=== PATIENT | male | born 1970 | race Two or more races ===

== ENCOUNTER 2022-06-29 08:08 | Outpatient (CLI) | payer BC, SELFPAY ==
[2022-06-29 11:04] LABS: Albumin* 4.1 g/dL (3.3-5.0); Chloride* 108 mmol/L (96-114); Sodium* 140 mmol/L (135-149)
[2022-06-29 11:05] LABS: Potassium* 4.2 mmol/L (3.6-5.1)
[2022-06-29 11:06] LABS: Cholesterol* 147 mg/dL (90-199)
[2022-06-29 11:07] LABS: Alanine Aminotransferase* 24 U/L (4-50); Alkaline Phosphatase* 224 U/L (40-150); Aspartate Amino Transferase* 27 U/L (12-35); Bilirubin Total* 0.8 mg/dL (0.1-1.5); Blood Urea Nitrogen* 14 mg/dL (7-30); Carbon Dioxide* 29 mmol/L (20-32); Creatinine* 0.8 mg/dL (0.5-1.5); Estimated Glomerular Filt Rate 105 ml/min; Glucose* 91 mg/dL (60-115); Total Protein* 6.9 g/dL (6.0-8.3); Triglycerides* 50 mg/dL (40-149); Uric Acid* 5.5 mg/dL (2.2-8.4)
[2022-06-29 11:08] LABS: HDL Cholesterol* 56 mg/dL (>=40); LDL Cholesterol Calculated 81 mg/dL (<100)
[2022-06-29 11:33] LABS: PSA Screen* 1.47 ng/mL (0.10-4.00)
[2022-07-05 13:04] LABS: Lab Miscellaneous Test SC
== END 2022-06-29 08:09 | disposition home or self-care (01) ==
PROVIDERS: PCP Internal Medicine; Visit Provider Internal Medicine
DX: M10.9 Gout, unspecified (principal); Z13.6 Encounter for screening for cardiovascular disorders; Z12.5 Encounter for screening for malignant neoplasm of prostate
CPT/HCPCS: 80053; 80061; 84080; 84153; 84550

== ENCOUNTER 2022-07-01 14:41 | Outpatient (CLI) | payer BC, SELFPAY ==
--- NOTE | 2022-07-01 15:00 | CRLHL7_ITS ---
For Patients: As a result of the Century Cures Act, medical imaging exams and procedure reports are released immediately into your electronic medical record. You may view this report before your referring provider. If you have questions, please contact your health care provider. INDICATION: Abdomen pain. Elevated alkaline phosphatase. COMPARISON: None. TECHNIQUE: Real time gomez scale imaging and color Doppler analysis was performed of the right upper quadrant. FINDINGS: Liver: The liver is normal in size measuring 14.4 cm in length. Normal echogenicity. No focal liver lesions identified. Gallbladder: No stones or sludge. No wall thickening or pericholecystic fluid. Negative sonographic Ruelas sign. Bile ducts: No biliary dilation. The common bile duct measures 4 mm in diameter. Pancreas: Normal where seen. Right kidney: The right kidney measures 11.5 cm in length. No hydronephrosis, calculus, or mass. Vascular: Normal caliber proximal abdominal aorta. The main portal vein appears patent. IMPRESSION: Unremarkable exam. Dictated by Melinda Wolf MD @ 07/02/2022 12:58:52 PM (Electronically Signed)
== END 2022-07-01 14:42 | disposition home or self-care (01) ==
PROVIDERS: PCP Internal Medicine; Visit Provider Internal Medicine
DX: R10.9 Unspecified abdominal pain (principal)
CPT/HCPCS: 76705

== ENCOUNTER 2022-07-02 21:43 | Emergency (ER) | payer BC, SELFPAY ==
[2022-07-02 21:47] VITALS: BP 149/88; PULSE 72; RESP 18; TEMP 36.4; O2SAT 97
--- NOTE | 2022-07-02 21:56 | CRLHL7_ITS ---
For Patients: As a result of the Century Cures Act, medical imaging exams and procedure reports are released immediately into your electronic medical record. You may view this report before your referring provider. If you have questions, please contact your health care provider. INDICATION: Upper abdominal pain. TECHNIQUE: CT abdomen and pelvis acquired with 89 cc Isovue 370 IV contrast. COMPARISON: None. FINDINGS: Lower chest: Scattered dependent atelectasis. Liver: Unremarkable. Normal in size and attenuation. No suspicious masses. Gallbladder and bile ducts: Unremarkable. No stones or inflammation. No biliary dilatation. Pancreas: Unremarkable. No mass or inflammation. Spleen: Unremarkable. Normal in size. No masses. Adrenal glands: Unremarkable. No nodules. Kidneys: Unremarkable. No suspicious masses, stones, or hydronephrosis. GI tract: Mild gastric antral/proximal duodenal thickening accentuated by nondistention. Normal in caliber. No sign of mass or inflammation. Normal appendix. Vasculature: Abdominal aorta is normal in caliber. Mesenteric arteries are patent. Lymph nodes: No lymphadenopathy. Peritoneum/Abdominal Wall: Unremarkable. No sign of mass or infiltration. No free air or significant free fluid. Pelvis: Mildly distended bladder. Bones: Unremarkable for age. IMPRESSION: No acute intra-abdominal/pelvic abnormality. Please note that all CT scans at this facility use dose modulation, iterative reconstruction, and/or weight-based dosing when appropriate to reduce radiation dose to as low as reasonably achievable. Dictated by Alejandro Bejarano MD @ 07/02/2022 10:29:01 PM (Electronically Signed)
--- NOTE | 2022-07-02 21:56 | ED_ITS ---
HPI - Abdominal Pain General Chief Complaint: Abdominal Pain Stated Complaint: Stomach Pain Time Seen by Provider: 07/02/22 22:04 History of Present Illness HPI narrative: Pt is a 52 year old gentleman who I have seen twice in the clinic this week for abd pain. Pt's pt initially was lower abd. Lab work including CBC and CMP was normal with the exception of an alk phos elevation. I did send of bone specific alk phos which is pending. I also did a ultrasound of the abd which was normal. Pt has called the clinic numerous times and has been in contact multiple times over the last 2 days with the Sustainability Officer as well. Pt now has epigastric pain with mild reflux. No dysphagia noted. No chronic gerd. The lower abd pain that initially led to his office visits this week has now resolved. Pt has had no weight loss. No fevers No chills. Pt has no overt chest pain, No ortopnea or PND. Work up begun in the clinic again is negative with the exception of the mild elevation of Alk Phos. Pt is concerned that he is having a stroke leading to his epigastric pain. Today's symptoms have been going on all day and have been constant. Related Data Previous Rx's Medication Instructions Recorded peg 3350-electrolytes 236 4,000 ml PO DIRECTED PRN 06/29/22 gram-22.74 gram-6.74 gram-5.86 Screening due #1 mL gram solution (Golytely) triamcinolone acetonide 0.1 % 1 applic topical QDAY #15 grams 06/29/22 topical cream Allergies Allergy/AdvReac Type Severity Reaction Status Date / Time No Known Drug Allergies Allergy Verified 06/30/22 16:45 Review of Systems Status of ROS Reports: 10 or more systems reviewed and unremarkable except as noted in History and below [facility] Medical History Abdominal pain Elevated alkaline phosphatase level Gout Rectal pain Social History Smoking Status: Former smoker Do you use any of these nicotine containing products: None Second hand tobacco smoke exposure: No How often do you have a drink containing alcohol: monthly or less How many standard drinks containing alcohol do you have on a typical day: 1 or 2 How often do you have six or more drinks on one occasion: Never AUDIT-C Alcohol total score: 1 Non-prescribed substance use: denies use Exam Narrative: Exam Narrative: EXAM GENERAL: Patient appears comfortable and well. EYES: No scleral icterus. ENT: Tympanic membranes and oropharynx normal. THYROID: no thyroid nodules or thyromegaly. LYMPH: No supraclavicular or cervical lymphadenopathy. SKIN: Visible skin seen during exam normal or with benign process only. EXT: No dependent lower extremity pedal edema. HEART: Regular rate and rhythm with no murmurs, rubs, or gallops. LUNGS: Clear to auscultation bilaterally with no crackles or wheezes. ABD: Soft, non tender, non distended. PSYCH: Good eye contact, speech is not pressured. Const: Vital Signs, click to edit/add: Vital Signs - 24 hr 07/02/22 21:47 Temperature 97.6 F Pulse Rate [Right Pulse Oximeter] 72 Respiratory Rate 18 Blood Pressure [Le ft Upper Arm] 149/88 H Pulse Oximetry 97 Oxygen Delivery Me thod Room Air Course Course Hospital Course: Clinic workup reviewed. CT abd pelvis, CBC, CMP, Amylase, EKG, Troponin requested. GI cocktail given. Reevaluation(s) Reevaluation #1: Pts labs reviewed and are normal including Alk Phos which is also normal now. Pt troponin negative. EKG negative upon my review. CT abd and pelvis normal. Vital Signs Vital signs: Initial Vital Signs Temperature 97.6 F 07/02/22 21:47 Temperature Source Temporal Artery Scan 07/02/22 21:47 Pulse Rate 72 07/02/22 21:47 Pulse Rhythm 07/02/22 21:47 Pulse Strength 3+ Normal 07/02/22 21:47 Respiratory Rate 18 07/02/22 21:47 Blood Pressure 149/88 H 07/02/22 21:47 Blood Pressure Mean 108 07/02/22 21:47 Blood Pressure Position Sitting 07/02/22 21:47 Pulse Oximetry 97 07/02/22 21:47 Oxygen Delivery Method 07/02/22 21:47 Vital Signs Temperature 97.6 F 07/02/22 21:47 Pulse Rate 72 07/02/22 21:47 Respiratory Rate 18 07/02/22 21:47 Blood Pressure 149/88 H 07/02/22 21:47 Pulse Oximetry 97 07/02/22 21:47 Oxygen Delivery Method 07/02/22 21:47 Temperature 97.6 F 07/02/22 21:47 Pulse Rate 72 07/02/22 21:47 Respiratory Rate 18 07/02/22 21:47 Blood Pressure 149/88 H 07/02/22 21:47 Pulse Oximetry 97 07/02/22 21:47 Oxygen Delivery Method 07/02/22 21:47 MDM - Abdominal Pain MDM Narrative Medical decision making narrative: Pt is a 52 year old gentleman who has seen me twice this week with different abd pain presents with epigastric pain all day. He has called the hospital repeatedly as well. Work up unremarkable. Abd us done earlier today normal. CT abd and pelvis normal. Pt's labs normal. Pt has normal exam and vitals except elevation of BP. I question anxiety. Colonoscopy scheduled for early this week. Will treat symptomatically for now. Differential Diagnosis Differential diagnosis: Likely abdominal pain, acute appendicitis, calculus of kidney, constipation, diverticulitis, gastroenteritis, pancreatitis and small bowel obstruction Lab Data Labs: Lab Results 07/02/22 Range/Units 22:05 Sodium 138 (135-149) mmol/L Potassium 3.8 (3.6-5.1) mmol/L Chloride 102 (96-114) mmol/L Carbon Dioxide 31 (20-32) mmol/L BUN 20 (7-30) mg/dL Creatinine 1.0 (0.5-1.5) mg/dL Estimated GFR 89 ml/min Glucose 83 (60-115) mg/dL Calcium 9.0 (8.4-10.6) mg/dL Total Bilirubin 0.6 (0.1-1.5) mg/dL AST 28 (12-35) U/L ALT 26 (4-50) U/L Alkaline Phosphatase 123 (40-150) U/L Troponin I < 0.01 L (0.01-0.04) ng/mL Total Protein 7.2 (6.0-8.3) g/dL Albumin 4.1 (3.3-5.0) g/dL Amylase 85 (18-89) U/L Discharge Plan Discharge Clinical Impression: Abdominal pain Patient Disposition: Home, Self-Care Condition: Stable Instructions: Abdominal Pain (ED) Activity Level: No Restrictions Discharge Diet: Regular Prescriptions: No Action triamcinolone acetonide 0.1 % cream 1 applic topical QDAY Qty: 15 0RF peg 3350-electrolytes [Golytely] 236-22.74-6.74 -5.86 gram recon soln 4,000 ml PO DIRECTED PRN (Reason: Screening due) Qty: 1 0RF Rx Instructions: 1 day prior to scopes, between 4 and 6 p.m., drink 8 oz glass every 15 minutes until half a gallon is gone. 6 hours prior to procedure, drink 8 oz glass every 15 minutes until second half gallon is gone. Follow Up/Referrals: Dustin Thrasher MD [Primary Care Provider] - Stand Alone Forms: [facility] Info Instructions
[2022-07-02] MEDS: GI COCKTAIL (VISC LIDO/ANTACID) 30 ML PO (22:43)
[2022-07-02 22:44] LABS: Albumin* 4.1 g/dL (3.3-5.0)
[2022-07-02 22:45] LABS: Chloride* 102 mmol/L (96-114); Potassium* 3.8 mmol/L (3.6-5.1); Sodium* 138 mmol/L (135-149)
[2022-07-02 22:47] LABS: Alkaline Phosphatase* 123 U/L (40-150); Amylase* 85 U/L (18-89); Aspartate Amino Transferase* 28 U/L (12-35); Bilirubin Total* 0.6 mg/dL (0.1-1.5); Blood Urea Nitrogen* 20 mg/dL (7-30); Carbon Dioxide* 31 mmol/L (20-32); Estimated Glomerular Filt Rate 89 ml/min; Glucose* 83 mg/dL (60-115); Total Protein* 7.2 g/dL (6.0-8.3)
[2022-07-02 22:48] LABS: Alanine Aminotransferase* 26 U/L (4-50)
[2022-07-02 23:03] LABS: Troponin I* < 0.01 ng/mL (0.01-0.04)
[2022-07-02 23:14] LABS: Basophils Absolute Auto 0.02 K/uL (0.00-0.30); Basophils Percent Auto 0.3 % (0.0-3.0); Eosinophils Absolute Auto 0.09 K/uL (0.00-0.50); Eosinophils Percent Auto 1.2 % (0.0-7.0); Hematocrit 44.1 % (37.0-53.0); Hemoglobin* 15.6 gm/dL (13.5-17.5); Immature Granulocytes Abs Auto 0.01 K/uL (0.00-0.30); Immature Granulocytes Pct Auto 0.1 %; Lymphocytes Absolute Auto 2.11 K/uL (0.90-2.90); Lymphocytes Percent Auto 28.4 % (20-44); Mean Corpuscular HGB Conc 35 gm/dL (32-36); Mean Corpuscular Hemoglobin 31 pg (26-34); Mean Corpuscular Volume 88 fL (80-100); Monocytes Percent Auto 9.9 % (0.0-11.0); Neutrophils Absolute Auto 4.47 K/uL (1.7-7.0); Neutrophils Percent Auto 60.1 % (42.0-72.0); Platelet Count* 231 K/uL (140-440); RDW Coefficient of Variation % 12.3 % (11.5-15.5); Red Blood Count 5.04 m/uL (4.30-5.90); Slide Review Reflex No; White Blood Count* 7.44 K/uL (4.50-11.00)
--- NOTE | 2022-07-02 23:40 | ED.NURSE ---
Pt given d/c instructions and states he is worried about the abdominal pain that radiates to epigastric area. MD updated and MD reports that pt's labs, tests, and imaging is all normal. MD reports etiology of pain is unknown. Pt verbalizes understanding and requests copies of lab/imaging reports. Provided to pt. Pt states he has follow-up appointment scheduled for next week. Pt verbalizes understanding of all d/c instructions and denies further questions.
== END 2022-07-02 23:46 | disposition home or self-care (01) ==
PROVIDERS: Emergency Provider Internal Medicine; PCP Internal Medicine
DX: R10.9 Unspecified abdominal pain (principal)
CPT/HCPCS: 36415; 74177; 80053; 82150; 84484; 85025; 93005; 99283; 99284; A9270; Q9967

== ENCOUNTER 2022-07-04 11:39 | Emergency (ER) | payer BC, SELFPAY ==
[2022-07-04] VITALS (8 sets, daily range): BP systolic 139–146; BP diastolic 97–102; PULSE 56–73; RESP 14; TEMP 36.2; O2SAT 93–99; BMI 28.2
--- NOTE | 2022-07-04 12:43 | CRLHL7_ITS ---
For Patients: As a result of the Century Cures Act, medical imaging exams and procedure reports are released immediately into your electronic medical record. You may view this report before your referring provider. If you have questions, please contact your health care provider. INDICATION: Chest pain TECHNIQUE: Two view chest. FINDINGS: The lungs are clear. The heart, mediastinum and pulmonary vessels are of normal size. There is no evidence of pleural disease. IMPRESSION: Negative chest. Dictated by Denise Clemente MD @ 07/04/2022 1:38:19 PM (Electronically Signed)
--- NOTE | 2022-07-04 12:50 | ED_ITS ---
HPI - General Adult General Date Seen: 07/04/22 Chief complaint: Headache/Migraine Stated complaint: Chest pressure, pressure in head, dizzy Time Seen by Provider: 07/04/22 12:17 Source: patient and paraprofessional interpreter Mode of arrival: ambulatory Limitations: language barrier History of Present Illness HPI narrative: Patient is a 52-year-old male seen with the insistence of a paraprofessional interpreter for evaluation of ongoing abdominal pain, now some chest pain, headache. He has been seen twice in clinic last week and then once in the ER for evaluation of abdominal pain which has been migratory. He has had an ultrasound, labs, and CT all of which have been normal. He is set up for a colonoscopy this coming week. He comes a in saying he continues to have some abdominal pain which starts in t he rectum and then goes up to the epigastrium, now he is having some chest pain on and off. He has taken some Sanju[place] as well as some Pepto-Bismol and then today took an omeprazole. These medications seem to help somewhat. He also has a headache which feels like a band around his head, now it is hurting more in the right side of his head and he is feeling sometimes dizzy. It seems as if the headache was present last week as well but now it is hurting more on the right side of his head which concerns him. He also says that he was having some diarrhea now is having constipation. He says his stools are green. He is worried about possibly some kind of parasite or bacterial infection. He just isn't feeling better. He does not have fevers. He has not had any vomiting. He has not had any bloody or black stools. He has not had any pleuritic chest pain or shortness of breath, no cough. Related Data Previous Rx's Medication Instructions Recorded peg 3350-electrolytes 236 4,000 ml PO DIRECTED PRN 06/29/22 gram-22.74 gram-6.74 gram-5.86 Screening due #1 mL gram solution (Golytely) triamcinolone acetonide 0.1 % 1 applic topical QDAY #15 grams 06/29/22 topical cream Allergies Allergy/AdvReac Type Severity Reaction Status Date / Time No Known Drug Allergies Allergy Verified 06/30/22 16:45 Review of Systems Status of ROS: Reports: 10 or more systems reviewed and unremarkable except as noted in History and below [facility] Medical History Abdominal pain Elevated alkaline phosphatase level Gout Rectal pain Social History Smoking Status: Former smoker Do you use any of these nicotine containing products: None Second hand tobacco smoke exposure: No How often do you have a drink containing alcohol: monthly or less How many standard drinks containing alcohol do you have on a typical day: 1 or 2 How often do you have six or more drinks on one occasion: Never AUDIT-C Alcohol total score: 1 Non-prescribed substance use: denies use Exam Narrative: Exam Narrative: Vital signs as noted above. In general, an alert, well-appearing patient. Looks comfortable. Head: Normocephalic, atraumatic. Eyes: Pupils are equal reactive. Extraocular movements are full. Conjunctivae are normal. ENT: Mucous membranes are moist. Throat is normal. Neck: Supple without lymphadenopathy. Heart: Regular rate and rhythm. No murmur or rub. Lungs: Clear bilaterally. No increased work of breathing, crackles or wheezes. Abdomen: Soft and nontender. No organomegaly. Extremities: Well perfused. No edema. No calf tenderness. Pulses intact. Neurologic: Patient is alert and oriented to person and place. Speech is fluent. Face is symmetric. Moves all extremities equally. Affect: Normal. Skin: Warm and dry. Well perfused. Const: Vital Signs, click to edit/add: Vital Signs - 24 hr 07/04/22 11:55 Temperature 97.2 F L Pulse Rate [Right Pulse Oximeter] 69 Respiratory Rate 14 Blood Pressure [Ri ght Upper Arm] 146/102 H Pulse Oximetry 95 Oxygen Delivery Me thod Room Air Documenting provider has reviewed patient's vital signs: yes Course Course Hospital Course: Had a lengthy conversation with the patient via the paraprofessional interpreter. He has had a fairly extensive abdominal workup thus far, and I have explained to him I do not really have any further testing to do through the ER for his abdominal symptoms. He did request some kind of evaluation for parasites, and while I think that is unlikely given that he is now having constipation, a did tell him that I could order stool studies and he can get these followed up with Dr. Thrasher. I do not think he will be able to give a stool sample in the ER here, so he will need to return that at some point in the future. In terms of his chest pain, this seems to be episodic and helped with medications for gastritis. He does note that he is having some symptoms suggestive of gastritis, with some nausea, and a sensation that after he eats he feels like he isn't digesting food well or feels like he becomes more nauseated. I think it is very reasonable for him to continue on the omeprazole that he is taking. I have stressed the importance of following through with his colonoscopy. We will go ahead and check an EKG and a troponin here, but my suspicion for a cardiac etiology for his symptoms is rather low given everything else that is going on. EKG here shows a sinus bradycardia, ventricular rate of 53 beats per minute. No acute ST segment changes. He does have a fairly large amplitude T-wave in lead 3, but this appears unchanged compared to previous EKG. EKG is otherwise unremarkable. Troponin is 0. Other labs including CBC, LFTs, lipase and CRP are all normal. I did order stool sample testing for him and he will return that. I have asked him to continue the omeprazole. Outpatient testing to continue as outlined above. Vital Signs Vital signs: Initial Vital Signs Temperature 97.2 F L 07/04/22 11:55 Temperature Source Temporal Artery Scan 07/04/22 11:55 Pulse Rate 69 07/04/22 11:55 Respiratory Rate 14 07/04/22 11:55 Blood Pressure 146/102 H 07/04/22 11:55 Blood Pressure Mean 116 07/04/22 11:55 Pulse Oximetry 95 07/04/22 11:55 Oxygen Delivery Method 07/04/22 11:55 Vital Signs Temperature 97.2 F L 07/04/22 11:55 Pulse Rate 69 07/04/22 11:55 Respiratory Rate 14 07/04/22 11:55 Blood Pressure 146/102 H 07/04/22 11:55 Pulse Oximetry 95 07/04/22 11:55 Oxygen Delivery Method 07/04/22 11:55 Temperature 97.2 F L 07/04/22 11:55 Pulse Rate 69 07/04/22 11:55 Respiratory Rate 14 07/04/22 11:55 Blood Pressure 146/102 H 07/04/22 11:55 Pulse Oximetry 95 07/04/22 11:55 Oxygen Delivery Method 07/04/22 11:55 Medical Decision Making Lab Data Labs: Lab Results 07/04/22 07/04/22 07/04/22 Range/Units 12:57 12:57 12:57 WBC 5.10 (4.50-11.00) K/uL RBC 5.20 (4.30-5.90) m/uL Hgb 16.0 (13.5-17.5) gm/dL Hct 45.5 (37.0-53.0) % MCV 88 (80-100) fL MCH 31 (26-34) pg MCHC 35 (32-36) gm/dL RDW Coeff of Jacklyn 12.2 (11.5-15.5) % Plt Count 223 (140-440) K/uL Neut % (Auto) 58.4 (42.0-72.0) % Lymph % (Auto) 31.2 (20-44) % Tyler % (Auto) 8.8 (0.0-11.0) % Eos % (Auto) 1.0 (0.0-7.0) % Baso % (Auto) 0.6 (0.0-3.0) % Neut # (Auto) 2.98 (1.7-7.0) K/uL Lymph # (Auto) 1.59 (0.90-2.90) K/uL Tyler # (Auto) 0.40 (0.00-0.90) K/UL Eos # (Auto) 0.05 (0.00-0.50) K/uL Baso # (Auto) 0.03 (0.00-0.30) K/uL Total Bilirubin 0.6 (0.1-1.5) mg/dL Direct Bilirubin 0.2 (0.0-0.5) mg/dL AST 26 (12-35) U/L ALT 25 (4-50) U/L Alkaline Phosphatase 108 (40-150) U/L C-Reactive Protein < 0.5 L (0.5-1.0) mg/dL Total Protein 7.2 (6.0-8.3) g/dL Albumin 4.0 (3.3-5.0) g/dL Lipase 81 (23-300) U/L POC Troponin I 0.00 L (0.01-0.04) ng/ml Discharge Plan Discharge Clinical Impression: Abdominal pain, Headache, Chest pain Patient Disposition: Home, Self-Care Condition: Stable Instructions: Abdominal Pain (ED) Additional Instructions: Follow-up for colonoscopy as planned. Continue omeprazole. Return stool for testing when able. Testing today is all normal. Seguimiento para colonoscopia seg?n lo planeado. Contin?e con omeprazol. Devuelva las heces para probarlas cuando sea posible. Las pruebas de hoy son normales. Prescriptions: No Action triamcinolone acetonide 0.1 % cream 1 applic topical QDAY Qty: 15 0RF peg 3350-electrolytes [Golytely] 236-22.74-6.74 -5.86 gram recon soln 4,000 ml PO DIRECTED PRN (Reason: Screening due) Qty: 1 0RF Rx Instructions: 1 day prior to scopes, between 4 and 6 p.m., drink 8 oz glass every 15 minutes until half a gallon is gone. 6 hours prior to procedure, drink 8 oz glass every 15 minutes until second half gallon is gone. Follow Up/Referrals: Dustin Thrasher MD [Primary Care Provider] - Stand Alone Forms: [employer] Info Instructions
[2022-07-04 13:05] LABS: Basophils Absolute Auto 0.03 K/uL (0.00-0.30); Basophils Percent Auto 0.6 % (0.0-3.0); Eosinophils Absolute Auto 0.05 K/uL (0.00-0.50); Hematocrit 45.5 % (37.0-53.0); Lymphocytes Absolute Auto 1.59 K/uL (0.90-2.90); Lymphocytes Percent Auto 31.2 % (20-44); Mean Corpuscular HGB Conc 35 gm/dL (32-36); Mean Corpuscular Hemoglobin 31 pg (26-34); Mean Corpuscular Volume 88 fL (80-100); Monocytes Percent Auto 8.8 % (0.0-11.0); Neutrophils Absolute Auto 2.98 K/uL (1.7-7.0); Neutrophils Percent Auto 58.4 % (42.0-72.0); Platelet Count* 223 K/uL (140-440); RDW Coefficient of Variation % 12.2 % (11.5-15.5)
[2022-07-04 13:06] LABS: Slide Review Reflex No
[2022-07-04 13:23] LABS: Alanine Aminotransferase* 25 U/L (4-50); Alkaline Phosphatase* 108 U/L (40-150); Aspartate Amino Transferase* 26 U/L (12-35); Bilirubin Direct* 0.2 mg/dL (0.0-0.5); Bilirubin Total* 0.6 mg/dL (0.1-1.5); Lipase* 81 U/L (23-300); Total Protein* 7.2 g/dL (6.0-8.3)
[2022-07-04 13:26] LABS: C Reactive Protein* < 0.5 mg/dL (0.5-1.0)
--- NOTE | 2022-07-04 14:09 | ED.NURSE ---
Pt requesting copy of lab report. Brought to pt.
[2022-07-04 20:31] LABS: H pylori Ag Stool* Negative (Negative)
[2022-07-10 04:46] LABS: Ova and Parasite, Fecal Negative (Negative)
== END 2022-07-04 14:30 | disposition home or self-care (01) ==
PROVIDERS: Emergency Provider Emergency Medicine; PCP Internal Medicine
DX: R10.9 Unspecified abdominal pain (principal); R07.89 Other chest pain; R51.9 Headache, unspecified
CPT/HCPCS: 36415; 71046; 80076; 83690; 84484; 85025; 86140; 87045; 87046; 87077; 87177; 87209; 87338; 87427; 93005; 94761; 99284

== ENCOUNTER 2022-07-06 07:14 | Outpatient (CLI) | payer BC, SELFPAY ==
[2022-07-06 08:19] LABS: SARS Antigen* Negative (Negative)
== END 2022-07-06 07:15 | disposition home or self-care (01) ==
LOC: OP CLINIC 07:17
PROVIDERS: PCP Internal Medicine; Visit Provider Surgery
DX: Z12.11 Encounter for screening for malignant neoplasm of colon (principal)
CPT/HCPCS: 45380; 87426; 88305; T1013; J2250; J3010

== ENCOUNTER 2022-07-08 13:31 | Emergency (ER) | payer BC, SELFPAY ==
[2022-07-08 13:43] VITALS: BP 162/89; PULSE 62; RESP 14; TEMP 36.5; O2SAT 97; BMI 27.9
--- NOTE | 2022-07-08 14:16 | ED.GIBLEED ---
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 Patient notes the onset of rectal pain approximately a week ago in association with some abdominal discomfort and green stools. He was seen here in the emergency room at which time he had a reassuring CT. He was seen once again in the emergency room at which time he was reassured once again with a normal ultrasound but set up for colonoscopy. He completed his colonoscopy 48 hours ago and he states that there was no abnormalities. He was seen yesterday by Dr. Thrasher in our clinic at which time he was started on omeprazole. States today that he can has thin ribbon like stools. He states that any time he eats he has abdominal discomfort and then shortly thereafter at least 3 episodes of loose stools. There is usually no blood in his stool. However, he noted today that when he wiped he did have some any shows me the toilet paper with a small amount of stool and small spots of bright pink blood. He notes no fever or chills. Patient notes that he has purchased lidocaine 's and preparation H and states that this does help his discomfort. He is thinking that he has hemorrhoids and this is why he has pain. I do ask him about previous prostate check and he states that nobody wanted to check his prostate. He states that he would like me to look in the area of his rectum as no one has done that. Patient also describes feeling of something crawling under his skin on his arms. I see from previous notes that he had complained of this before. I do ask him if he has ever seen anything and he denies. He also tells me that when he was in [place] he was told that he had narrowed arteries. He has a variety of complaints today. Related Data Previous Rx's Medication Instructions Recorded omeprazole magnesium 20 mg 20 mg PO QDAY Dyspepsia #30 tabs 07/07/22 tablet,delayed release (Prilosec OTC) Allergies Allergy/AdvReac Type Severity Reaction Status Date / Time No Known Drug Allergies Allergy Verified 07/07/22 07:56 Review of Systems Status of ROS: Reports: 10 or more systems reviewed and unremarkable except as noted in History and below Const: Denies: fever or chills ENMT: Denies: throat pain or neck pain Musculo: Denies: neck pain PFSH PFSH Medical History Abdominal pain Coccydynia Delusions of parasitosis Elevated alkaline phosphatase level Gout Rectal pain Social History Smoking Status: Never smoker Do you use any of these nicotine containing products: None Second hand tobacco smoke exposure: No How often do you have a drink containing alcohol: monthly or less How many standard drinks containing alcohol do you have on a typical day: 1 or 2 How often do you have six or more drinks on one occasion: Never AUDIT-C Alcohol total score: 1 Non-prescribed substance use: denies use Exam Narrative: Exam Narrative: Patient is alert and oriented. He is very pleasant. No evidence of pressured speech. Somewhat anxious. Eyes are clear. Head is atraumatic and normocephalic. Face is symmetrical. Oral cavity with moist mucous membranes. Neck is supple without lymphadenopathy. Heart with a regular rate and rhythm and lungs are clear in all lung mcintosh. Examination of arm shows no unusual erythema. Abdomen is soft nontender. Lower extremities without edema. Examination of anal area shows a very small non thrombosed hemorrhoid. There is no excessive erythema. There is tenderness in the perineum but no evidence of swelling or erythema. Digital exam shows normal soft prostate no excessive discomfort with exam. No blood noted. No stool is obtained. Const: Vital Signs, click to edit/add: Vital Signs - 24 hr 07/08/22 13:43 Temperature 97.7 F Pulse Rate [Pulse Oximeter] 62 Respiratory Rate 14 Blood Pressure [Ri ght Upper Arm] 162/89 H Pulse Oximetry 97 Oxygen Delivery Me thod Room Air Documenting provider has reviewed patient's vital signs: yes Course Vital Signs Vital signs: Initial Vital Signs Temperature 97.7 F 07/08/22 13:43 Temperature Source Temporal Artery Scan 07/08/22 13:43 Pulse Rate 62 07/08/22 13:43 Pulse Rhythm 07/08/22 13:43 Respiratory Rate 14 07/08/22 13:43 Blood Pressure 162/89 H 07/08/22 13:43 Blood Pressure Mean 113 07/08/22 13:43 Blood Pressure Position Sitting 07/08/22 13:43 Pulse Oximetry 97 07/08/22 13:43 Oxygen Delivery Method 07/08/22 13:43 Vital Signs Temperature 97.7 F 07/08/22 13:43 Pulse Rate 62 07/08/22 13:43 Respiratory Rate 14 07/08/22 13:43 Blood Pressure 162/89 H 07/08/22 13:43 Pulse Oximetry 97 07/08/22 13:43 Oxygen Delivery Method 07/08/22 13:43 Temperature 97.7 F 07/08/22 13:43 Pulse Rate 62 07/08/22 13:43 Respiratory Rate 14 07/08/22 13:43 Blood Pressure 162/89 H 07/08/22 13:43 Pulse Oximetry 97 07/08/22 13:43 Oxygen Delivery Method 07/08/22 13:43 MDM - GI Bleed MDM Narrative Medical decision making narrative: 1. Abdominal pain-at this time I suspect patient had viral type infection with description of green stools. He did not have any vomiting. Dr. Thrasher started patient on omeprazole yesterday and I would have him continue this. If pain is ongoing recommend follow-up with GI specialist. No significant results back from stool culture but I have added the GI pathogens panel by PCR which tests for a variety of bacteria viruses and parasites including Giardia. Patient unable to produce stool sample here but will send him home with collection supplies. 2. Rectal pain-much as this appears to be muscular. 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 May have to purchase a donut pillow to use while at work. I do think there is significant overlying anxiety at this time. No evidence of proctitis and I did review CT from earlier in the week which was reassuring. Follow-up with primary MD for ongoing discomfort. No evidence of erythema, fluctuance, fever. Note that the toilet paper brought here to the ER appears to be is light pink drops of blood likely from aggressive wiping. I have a asked him to be very gentle with wiping after stooling. 3. Anxiety-patient is also worried about possible of parasites. This is noted on not only today's visit the previous visits. Reassurance that we do not see anything at this time. 4. Disposition-patient is reassured that he has a normal urinalysis. He was worried that it appear to be foaming. Will also check an additional GI panel. Have explained to him that I am unable to attend to all of his of complaints today as we are the emergency room. I would occurred him to follow up with a primary MD for ongoing cares. Of course for onset of new symptoms return. Medical Records Attestation: I reviewed the patient's medical records. Lab Data Attestation: I reviewed the patient's lab results. Labs: Lab Results 07/08/22 Range/Units 15:30 Urine Color Yellow (Yellow) Urine Appearance Clear (Clear) Urine pH 7.0 (5.0-8.5) Ur Specific Mascot 1.015 (1.000-1.030) Urine Protein Negative (Negative) Urine Glucose (UA) Negative (Negative) Urine Ketones Negative (Negative) Urine Blood Trace-intact A (Negative) Urine Nitrite Negative (Negative) Urine Bilirubin Negative (Negative) Urine Urobilinogen 0.2 (0.2-1.0) Ur Leukocyte Esterase Negative (Negative) Urine RBC 0-2 (0-2) Urine WBC 0-2 (0-5) Ur Squamous Epith Cells Few (None-Few) Urine Bacteria None (None) Discharge Plan Discharge Clinical Impression: Delusions of parasitosis, Abdominal pain, Rectal pain Patient Disposition: Home, Self-Care Condition: Unchanged Additional Instructions: 1. For your abdominal pain, continue medication omeprazole also known as Prilosec prescribed to you by Dr. Thrasher. Avoid spicy foods at this time. Amend avoiding dairy containing foods for the next week. I would like to order a more broad based GI test. We will provide you with a cup for that. Please bring it back at her earliest convenience. At this time I do not recommend antibiotics. 2. His urinalysis was normal. 3. For your rectal discomfort, it appears that some of this may be related to trauma from your job. I suggest a soft cushion or a special pillow called a donut to use while you are working. It is my hope we can take some of the pressure off of the rectal area. Suggest that you use moistened wipes for your frequent stools. You may continue to use the medications that you purchased that do help your pain. 4. You may use ibuprofen or Tylenol as needed for discomfort. Please follow-up with your primary doctor ongoing discomfort. 1. Para cope dolor abdominal, contin?e con el medicamento omeprazol tambi?n conocido kimberly Prilosec recetado por el Dr. Thrasher. Evite los alimentos picantes. Tambien evite los alimentos que contienen l?cteos cheryl la pr?xima semana. Me gustar?a pedir savita prueba de heces de base m?s amplia. Le proporcionaremos savita taza para eso. Por favor, tr?igalo de vuelta lo antes posible. En neville momento no recomiendo antibi?ticos. 2. Cope an?lisis de orina fue normal. 3. Para cope malestar rectal, parece que algo de esto puede estar relacionado con el trauma de cope trabajo. Sugiero un coj?n suave o savita almohada especial llamada rae para usar mientras trabaja. Espero que podamos quitar algo de la presi?n del ?nato rectal. Sugiera que use toallitas h?medas para young heces frecuentes. Puede continuar usando los medicamentos que compr? que ayudan a aliviar cope dolor (kimberly Preparation H). 4. Puede usar ibuprofeno o Tylenol seg?n sea necesario para el malestar. Por favor, maurilio un seguimiento con cope m?dico de cabecera molestias continuas. Prescriptions: No Action omeprazole magnesium [Prilosec OTC] 20 mg tablet,delayed release (DR/EC) 20 mg PO QDAY Qty: 30 3RF Follow Up/Referrals: Dustin Thrasher MD [Primary Care Provider] - Stand Alone Forms: [facility] Info Instructions
[2022-07-08 15:48] LABS: Appearance Urine Clear (Clear); Bilirubin Urine Negative (Negative); Blood Urine Trace-intact (Negative); Color Urine Yellow (Yellow); Glucose Urine Negative (Negative); Ketones Urine Negative (Negative); Leukocyte Esterase Urine Negative (Negative); Nitrite Urine Negative (Negative); Protein Urine Negative (Negative); Specific Gravity Urine 1.015 (1.000-1.030); Urobilinogen Urine 0.2 (0.2-1.0)
[2022-07-08 16:27] LABS: RBC Urine 0-2 (0-2); Squamous Epithelial Cell Urine Few (None-Few); WBC Urine 0-2 (0-5)
--- NOTE | 2022-07-08 16:30 | ED.NURSE ---
MD alvarez in room for rectal exam, this RN witnessed, pt had no complaints.
[2022-07-12 07:12] LABS: Adenovirus PCR Not Detected; Astrovirus PCR Not Detected; Campylobacter PCR Not Detected; Cdiff Toxin A/B PCR Not Detected; Cryptosporidium PCR Not Detected; Cyclospora cayetanensis PCR Not Detected; Entamoeba histolytica PCR Not Detected; Enteroaggregative E coli PCR Detected; Enteropathogenic E coli PCR Not Detected; Enterotoxigenic E coli PCR Not Detected; Giardia lamblia PCR Not Detected; Norovirus Gi/GII PCR Not Detected; Plesiomonas shig PCR Not Detected; Rotavirus A PCR Not Detected; Salmonella PCR Not Detected; Sapovirus PCR Not Detected; Shiga toxin E coli PCR Not Detected; Shigella/Enteroinvasive E coli Not Detected; Vibrio PCR Not Detected; Vibrio cholerae PCR Not Detected; Yersinia enterocolitica PCR Not Detected
== END 2022-07-08 17:16 | disposition home or self-care (01) ==
PROVIDERS: Emergency Provider Family Medicine; PCP Internal Medicine
DX: F41.9 Anxiety disorder, unspecified (principal); F22 Delusional disorders; K62.5 Hemorrhage of anus and rectum
CPT/HCPCS: 81001; 87070; 87505; 99283; 99284

== ENCOUNTER 2022-07-19 09:23 | Outpatient (CLI) | payer BC, SELFPAY ==
[2022-07-19 10:07] LABS: SARS PCR* POSITIVE SARS-CoV-2 (Negative)
== END 2022-07-19 09:24 | disposition home or self-care (01) ==
LOC: NFLDREF 09:24
PROVIDERS: PCP Internal Medicine; Visit Provider Internal Medicine
DX: U07.1 COVID-19 (principal)
CPT/HCPCS: 87635

== ENCOUNTER 2023-04-21 08:59 | Outpatient (CLI) | payer MEDICAID, SELFPAY ==
--- NOTE | 2023-04-21 09:15 | CRLHL7_ITS ---
For Patients: As a result of the Century Cures Act, medical imaging exams and procedure reports are released immediately into your electronic medical record. You may view this report before your referring provider. If you have questions, please contact your health care provider. INDICATION: Chronic low back pain. COMPARISON: 04/11/2023. Technique Sagittal T1, T2, and STIR sequences. Axial T1 and T2 weighted sequences. FINDINGS: Normal vertebral body alignment. No fractures. No vertebral body loss of height. No spondylosis. No ligamentous injury. No suspicious osseous lesions. Number conus terminates at L1. T12-L1: No spinal canal neural foraminal narrowing. L1-2: Disc degeneration posted disc bulge. No narrowing of the spinal canal. Mild narrowing of the left neural foramen. No narrowing of the right neural foramen. L2-3: Disc degeneration. Posterior disc bulge. No narrowing of spinal canal. No neural foraminal narrowing. Mild facet arthropathy. L3-4: Disc degeneration. Posterior disc bulge. No narrowing of spinal canal. Mild narrowing of the left neural foramen. No narrowing of the right neural foramen. L4-5: Disc degeneration and posterior disc bulge. No narrowing of spinal canal. Mild narrowing of the right neural foramen. No narrowing of the left neural foramen. Mild facet arthropathy. L5-S1: Disc degeneration loss of disc height. Modic type 1 endplate changes. No narrowing of spinal canal. No impingement of the traversing S1 nerve roots. Mild narrowing of the bilateral foramina. Normal visualized SI joints. Normal paraspinal soft tissues. IMPRESSION: 1. Normal alignment. No fractures 2. Lumbar spondylosis. 3. At L1-2, mild narrowing of the left neural foramina 4. At L3-4, mild narrowing of the left neural foramen 5. At L4-5, mild narrowing of the right neural foramina. 6. At L5-S1, mild narrowing of the bilateral neural foramina Dictated by Ha Allen MD @ 04/21/2023 1:35:42 PM (Electronically Signed)
== END 2023-04-21 09:00 | disposition home or self-care (01) ==
LOC: MRI 09:01
PROVIDERS: PCP Internal Medicine; Visit Provider Family Medicine
DX: M54.50 Low back pain, unspecified (principal); M47.896 Other spondylosis, lumbar region; M51.26 Other intervertebral disc displacement, lumbar region; M51.27 Other intervertebral disc displacement, lumbosacral region; G89.29 Other chronic pain; M54.6 Pain in thoracic spine; S32.049A Unspecified fracture of fourth lumbar vertebra, initial encounter for closed fracture
CPT/HCPCS: 72148

== ENCOUNTER 2023-05-23 09:53 | Emergency (ER) | payer MEDICAID, SELFPAY ==
[2023-05-23 10:12] VITALS: BP 149/87; PULSE 78; RESP 16; TEMP 36.9; O2SAT 94; BMI 28.2
[2023-05-23 11:38] LABS: PCR FLU A Negative PCR FLU A (Negative); PCR FLU B Negative PCR FLU B (Negative); PCR RSV Negative PCR RSV (Negative); SARS PCR* Negative SARS-CoV-2 (Negative)
--- NOTE | 2023-05-23 12:27 | ED_ITS ---
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 He states about 2 weeks ago he felt his ears were little itchy, throat was sore. Symptoms progressed into the this cough that is unrelenting, does not allow him to sleep. He denies any fever. He denies any history of prior lung disease, no asthma or COPD. He did travel to [place] about 2 weeks ago. He has no abdominal symptoms, as far as pain his chest and abdomen are just sore muscle-james from coughing. I was able to review with him that the triple swab obtained by nursing staff appropriately on his arrival is negative for COVID, influenza and RSV. Related Data Home Medications Medication Instructions Recorded Confirmed oxybutynin chloride 10 mg 10 mg PO DAILY 04/11/23 04/25/23 tablet,extended release 24 hr Previous Rx's Medication Instructions Recorded dicyclomine 10 mg capsule 10 mg PO QID PRN Colon Spasm #60 03/28/23 caps celecoxib 200 mg capsule (Celebrex) 200 mg PO QDAY #14 caps 04/11/23 methylprednisolone 4 mg tablets in See Rx Instructions PO PER PKG DIR 04/11/23 a dose pack (Medrol (Rik)) #21 ea codeine 10 mg-guaifenesin 100 mg/5 5 ml PO Q6H PRN #473 mL 05/23/23 mL oral liquid (Guaifenesin AC) doxycycline monohydrate 100 mg 100 mg PO BID #14 tabs 05/23/23 tablet Allergies Allergy/AdvReac Type Severity Reaction Status Date / Time No Known Drug Allergies Allergy Verified 04/25/23 14:09 Review of Systems Narrative: As per HPI. PFS PFS Medical History Irritable bowel syndrome ?K58.9 - Irritable bowel syndrome without diarrhea (ICD-10) Urinary tract infection ?N39.0 - Urinary tract infection, site not specified (ICD-10) Dyspepsia ?R10.13 - Epigastric pain (ICD-10) Anxiety ?F41.9 - Anxiety disorder, unspecified (ICD-10) Hemorrhoids ?K64.9 - Unspecified hemorrhoids (ICD-10) Urinary frequency ?R35.0 - Frequency of micturition (ICD-10) Dysuria ?R30.0 - Dysuria (ICD-10) 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 (ICD-10) Coccydynia ?M53.3 - Sacrococcygeal disorders, not elsewhere classified (ICD-10) Abdominal pain ?R10.9 - Unspecified abdominal pain (ICD-10) Elevated alkaline phosphatase level ?R74.8 - Abnormal levels of other serum enzymes (ICD-10) Gout ?M10.9 - Gout, unspecified (ICD-10) Rectal pain ?K62.89 - Other specified diseases of anus and rectum (ICD-10) Social History Smoking Status: Former smoker Do you use any of these nicotine containing products: None Second hand tobacco smoke exposure: No How often do you have a drink containing alcohol: monthly or less How many standard drinks containing alcohol do you have on a typical day: 1 or 2 How often do you have six or more drinks on one occasion: Never AUDIT-C Alcohol total score: 1 Non-prescribed substance use: denies use Little interest or pleasure in doing things: not at all Feeling down, depressed, or hopeless: not at all Exam Const: Vital Signs, click to edit/add: Vital Signs - 24 hr 05/23/23 10:12 Temperature 98.4 F Pulse Rate [Pulse Oximeter] 78 Respiratory Rate 16 Blood Pressure [Ri ght Upper Arm] 149/87 H Pulse Oximetry 94 Oxygen Delivery Me thod Room Air Carmelina is a 53-year-old male that is alert, interactive and being aggravated by a recurrent dry sounding cough. When he attempts to talk, his cough will interrupt his speech. He has no hoarseness, is breathing easily on room air. Sclera clear, TMs canals without any evidence of infection or drainage. Neck is supple, no jugular venous tension, no cervical adenopathy, no thyromegaly masses or nodules. Lungs actually are clear, do not hear any wheezing or crackles, is not tachypneic, no significant prolongation of his expiratory phase. CV regular rate and rhythm, no murmur, normal S1 and S2, no S3 or S4. Abdomen is soft, nontender. Documenting provider has reviewed patient's vital signs: yes Course Course ED Course: His triple swab is currently negative. Will proceed with a CBC and chest x-ray. And minimum it seems as if he needs some medical management for symptom control, have discussed Mitch with codeine cough syrup for bedtime which she would greatly appreciate. Will see if there is any evidence to treat him for bacterial respiratory infection like pneumonia based on his white count and chest imaging. Reevaluation(s) Time of Reevaluation #1: 14:26 Reevaluation #1: Have reviewed with patient via the biological science aide that his white count and chest x-ray are reassuring. He does seem to have quite profound cough and does not look like he feels well. Given that his symptoms have been going on for 2 weeks, I am going to place him on antibiotics. We will send in Griffinartur for help with sleep at night. He can use DayQuil during the day. Vital Signs Vital signs: Initial Vital Signs Temperature 98.4 F 05/23/23 10:12 Temperature Source Temporal Artery Scan 05/23/23 10:12 Pulse Rate 78 05/23/23 10:12 Respiratory Rate 16 05/23/23 10:12 Blood Pressure 149/87 H 05/23/23 10:12 Blood Pressure Mean 107 H 05/23/23 10:12 Blood Pressure Position Sitting 05/23/23 10:12 Pulse Oximetry 94 05/23/23 10:12 Oxygen Delivery Method Room Air 05/23/23 10:12 Vital Signs Temperature 98.4 F 05/23/23 10:12 Pulse Rate 78 05/23/23 10:12 Respiratory Rate 16 05/23/23 10:12 Blood Pressure 149/87 H 05/23/23 10:12 Pulse Oximetry 94 05/23/23 10:12 Oxygen Delivery Method Room Air 05/23/23 10:12 Temperature 98.4 F 05/23/23 10:12 Pulse Rate 78 05/23/23 10:12 Respiratory Rate 16 05/23/23 10:12 Blood Pressure 149/87 H 05/23/23 10:12 Pulse Oximetry 94 05/23/23 10:12 Oxygen Delivery Method Room Air 05/23/23 10:12 Medical Decision Making Lab Data Lab results reviewed: Yes I reviewed the patient's lab results Labs: Lab Results 05/23/23 05/23/23 Range/Units 10:15 12:50 WBC 9.13 (4.50-11.00) K/uL RBC 5.07 (4.30-5.90) m/uL Hgb 15.7 (13.5-17.5) gm/dL Hct 44.9 (37.0-53.0) % MCV 89 (80-100) fL MCH 31 (26-34) pg MCHC 35 (32-36) gm/dL RDW Coeff of Jaclkyn 12.8 (11.5-15.5) % Plt Count 220 (140-440) K/uL Neut % (Auto) 68.6 (42.0-72.0) % Lymph % (Auto) 21.7 (20-44) % [place] % (Auto) 6.9 (0.0-11.0) % Eos % (Auto) 2.5 (0.0-7.0) % Baso % (Auto) 0.2 (0.0-3.0) % Neut # (Auto) 6.26 (1.7-7.0) K/uL Lymph # (Auto) 1.98 (0.90-2.90) K/uL [place] # (Auto) 0.60 (0.00-0.90) K/UL Eos # (Auto) 0.23 (0.00-0.50) K/uL Baso # (Auto) 0.02 (0.00-0.30) K/uL Abs Immat Gran (auto) 0.01 (0.00-0.30) K/uL Imm/Tot Granulo (auto) 0.1 % SARS-CoV-2 (PCR) Negative SARS-CoV-2 (Negative) Influenza Type A (PCR) Negative PCR FLU A (Negative) Influenza Type B (PCR) Negative PCR FLU B (Negative) RSV (PCR) Negative PCR RSV (Negative) Imaging Data Chest x-ray: Attestation: I have reviewed the pertinent imaging results. My impression: No acute cardiopulmonary change on my preliminary review. Radiologist's impression: Patient: CARMELINA MELENDEZ Facility:?[facility] Patient ID:?[id number] Site Patient ID:?[id number]. Site :?[id number] Study:?XRay Chest 2 VIEW-05/23/2023 1:06:59 PM Ordering Physician:Asha Hagen Final Report: INDICATION: Cough. TECHNIQUE: Chest 2 views. COMPARISON: None. FINDINGS: Cardiovascular and mediastinum: Heart size and vasculature are normal in caliber and appearance. Lungs and pleural spaces: Lungs are clear. No sign of infiltrate or mass. No sign of pleural effusion. No pneumothorax. Bones and soft tissues: No significant findings. IMPRESSION: No acute or significant findings. Dictated by Alejandro Bejarano MD @ 05/23/2023 1:53:11 PM (Electronic Signature) Discharge Plan Discharge Clinical Impression: Cough Patient Disposition: Home, Self-Care Condition: Stable Instructions: Community Acquired Pneumonia (ED), Acute Cough (ED) Additional Instructions: I do think you likely have an early pneumonia. Will place you on antibiotics. Please take as prescribed and complete them. Do recommend using DayQuil or similar cough and cold medicine during the day. I have written for Robitussin A-C which has codeine to help you sleep at night. Do not take this cough medicine within 6-[address] or operating machinery. Would recommend you use this at bedtime to help you sleep. If you are not improving over the next week, feel you are worsening at any point, develops fevers or increasing respiratory symptoms, any difficulty breathing, do recommend re-evaluation. Activity Level: Activity as Tolerated Prescriptions: New doxycycline monohydrate 100 mg tablet 100 mg PO BID Qty: 14 0RF codeine-guaifenesin [Guaifenesin AC] 10-100 mg/5 mL liquid 5 ml PO Q6H PRNQty: 473 0RF No Action dicyclomine 10 mg capsule 10 mg PO QID PRN (Reason: Colon Spasm) Qty: 60 0RF oxybutynin chloride 10 mg tablet extended release 24hr 10 mg PO DAILY methylprednisolone [Medrol (Rik)] 4 mg tablets,dose pack See Rx Instructions PO PER PKG DIR Qty: 21 0RF Rx Instructions: PO PER PKG DIR celecoxib [Celebrex] 200 mg capsule 200 mg PO QDAY Qty: 14 0RF Follow Up/Referrals: Dustin Thrasher MD [Primary Care Provider] - Stand Alone Forms: [facility] Info Instructions
--- NOTE | 2023-05-23 12:35 | CRLHL7_ITS ---
For Patients: As a result of the Century Cures Act, medical imaging exams and procedure reports are released immediately into your electronic medical record. You may view this report before your referring provider. If you have questions, please contact your health care provider. INDICATION: Cough. TECHNIQUE: Chest 2 views. COMPARISON: None. FINDINGS: Cardiovascular and mediastinum: Heart size and vasculature are normal in caliber and appearance. Lungs and pleural spaces: Lungs are clear. No sign of infiltrate or mass. No sign of pleural effusion. No pneumothorax. Bones and soft tissues: No significant findings. IMPRESSION: No acute or significant findings. Dictated by Alejandro Bejarano MD @ 05/23/2023 1:53:11 PM (Electronically Signed)
[2023-05-23 12:58] LABS: Basophils Absolute Auto 0.02 K/uL (0.00-0.30); Basophils Percent Auto 0.2 % (0.0-3.0); Eosinophils Absolute Auto 0.23 K/uL (0.00-0.50); Eosinophils Percent Auto 2.5 % (0.0-7.0); Hematocrit 44.9 % (37.0-53.0); Hemoglobin* 15.7 gm/dL (13.5-17.5); Immature Granulocytes Abs Auto 0.01 K/uL (0.00-0.30); Immature Granulocytes Pct Auto 0.1 %; Lymphocytes Absolute Auto 1.98 K/uL (0.90-2.90); Lymphocytes Percent Auto 21.7 % (20-44); Mean Corpuscular HGB Conc 35 gm/dL (32-36); Mean Corpuscular Hemoglobin 31 pg (26-34); Mean Corpuscular Volume 89 fL (80-100); Monocytes Percent Auto 6.9 % (0.0-11.0); Neutrophils Absolute Auto 6.26 K/uL (1.7-7.0); Neutrophils Percent Auto 68.6 % (42.0-72.0); Platelet Count* 220 K/uL (140-440); RDW Coefficient of Variation % 12.8 % (11.5-15.5); Red Blood Count 5.07 m/uL (4.30-5.90); White Blood Count* 9.13 K/uL (4.50-11.00)
[2023-05-23 13:00] LABS: Slide Review Reflex No
[2023-05-23 14:47] VITALS: BP 149/87; PULSE 78; RESP 16; TEMP 36.9
== END 2023-05-23 14:49 | disposition home or self-care (01) ==
PROVIDERS: Emergency Provider Family Medicine; PCP Internal Medicine
DX: R05.9 Cough, unspecified (principal)
CPT/HCPCS: 36415; 71046; 85025; 87631; 99283; 99284; T1013

== ENCOUNTER 2023-06-29 10:39 | Outpatient (CLI) | payer BC, MEDICAID, SELFPAY | END 2023-06-29 10:40 | disposition home or self-care (01) | PROVIDERS: PCP Internal Medicine; Visit Provider Internal Medicine | DX: Z00.00 Encounter for general adult medical examination without abnormal findings (principal); M10.9 Gout, unspecified; R74.8 Abnormal levels of other serum enzymes; R10.13 Epigastric pain; Z12.5 Encounter for screening for malignant neoplasm of prostate; Z13.6 Encounter for screening for cardiovascular disorders; Z13.9 Encounter for screening, unspecified | CPT/HCPCS: 80053; 80061; 84550; 85025; G0103 ==

== ENCOUNTER 2023-07-19 14:45 | Outpatient (RCR) | payer BC, MEDICAID, SELFPAY ==
--- NOTE | 2023-05-24 11:45 | PT.OPEX ---
PT [place] [facility] PT [facility] Eval Start: 05/24/23 10:18 Freq: Status: Active Protocol: Document 05/24/23 10:19 CRP (Rec: 05/24/23 11:44 CRP [id number]) E-signed By [facility] PT Physical Therapy Outpatient Evaluation Insurance Information Recert Due Date 08/22/23 Insurance Name Medicaid,[facility] Medical Diagnosis Chronic LBP Spondylosis thoracic spine pain Treating Diagnosis Neck pain Upper thoracic spine pain LBP Coccyx pain Referring MD Dr Bright Subjective Subjective Pt co pain at upper thoracic spine between shoulder blades that has been going on for about 2 years and pain at his coccyx area that has been an issue for about one year. No known injury. Pt reports not pain or numbness/tingling into LEs. Can wake sometimes with tingling into both hands. Pulling down on straps/winches at work can increase the coccyx pain. Interscap pain increases with looking down and working with his arms out in front of him. Has had PT and imaging for upper back. Maybe helped a little at the time. Has not had any treatment for his lower spine. No issues with sleep. It used to be that he would wake with lower spine pain but more recently he has not been. 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 Needs to be able to do a lot of lifting and bending Objective Range of Motion Cervical Spine ROM Flex WNL Ext min dec bilat rot min/mod dec R SB min dec L SB min/mod dec Thoracic spine ROM Flex WNL Ext mod dec Bilat SB min decrease Lumbar spine ROM FLex min dec Ext WNL bilat SB mod dec rot min dec Strength Bilateral UE AND LE Myotomes WNL Posture Forward head positioning Sensation/Reflexes Sensation intact to light touch Other/Pertinent Objective Segmental testing Hypomob and painful CT junction and L3-5 bilat at grade 3- Assessment Assessment/Impression Pt presents to the clinic with primary co upper thoracic spine pain and coccyx pain. Pts presentation is consistent with thoracic spine pain referred from CT junction mechanical dysfunction and coccyx pain that is related to lumbar spine mechanical dysfunction. Pts signs and sxs are characterized by painful loss of spinal ROM, painful hypomobility with segmental testing, postural dysfunction of upper thoracic/ cervical spine and poor lumbopelvic control. Skilled PT is necessary to incorporate ther ex, nm latrice, manual therapy and pt education to decrease pain and improve functional mobility. 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 Pt will be independent with HEP in 6-8 weeks. 2. 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 3. Pt will exercise without c/ o coccyx pain in 12 weeks. Coordination/Communication With Referral Source Treatment Plan/Direct Interventions Joint Mobilization,Manual Therapy,Neuromuscular Re-ed, Self-Care/Home Management, Therapeutic Activities, Therapeutic Exercises Frequency/Duration 1-2x/wk for 12 weeks Patient Will Be Discharged From Therapy Completion of LTG(s),Skills Plateau,Independent w/HEP, Independently Progressing Evaluation Billing Untimed Code Treatment Minutes 30 Complexity High Certification Information Initial Certification Date 05/24/23 Ending Certification Date 08/22/23 Provider Signature Shows Agreement With POC & Medical Necessity Physician Signature & Date Requested Please Sign/Date Here Physician Comment/Change : Physician NPI Number #
== END 2023-10-06 15:08 | disposition home or self-care (01) ==
PROVIDERS: PCP Internal Medicine; Visit Provider Family Medicine
DX: M54.50 Low back pain, unspecified (principal); G89.29 Other chronic pain; M54.6 Pain in thoracic spine; M47.9 Spondylosis, unspecified; M54.2 Cervicalgia; M53.3 Sacrococcygeal disorders, not elsewhere classified; Z51.89 Encounter for other specified aftercare
CPT/HCPCS: 97110; 97112; 97140; 97163; 97535; T1013

== ENCOUNTER 2023-08-02 08:55 | Emergency (ER) | payer BC, MEDICAID, SELFPAY ==
[2023-08-02 09:01] VITALS: BP 149/78; PULSE 64; RESP 18; TEMP 36.3; O2SAT 97; BMI 26.9
--- NOTE | 2023-08-02 09:49 | CT_ITS ---
INDICATION: UPPER ABDOMINAL PAIN, VOMITING. TECHNIQUE: POSTCONTRAST CT ABDOMEN AND PELVIS. 84 ML ISOVUE 370 INTRAVENOUS CONTRAST. COMPARISON: 07/02/2022 FINDINGS: LUNG BASES ARE CLEAR. NO INTRAHEPATIC MASS. GALLBLADDER NORMAL. SPLEEN IS WITHIN NORMAL LIMITS. NORMAL ADRENAL GLANDS. KIDNEYS ARE NORMAL. NORMAL PANCREAS. NO ADENOPATHY, FREE AIR, FREE FLUID OR ABSCESS. NO BOWEL OBSTRUCTION. THE APPENDIX IS WITHIN NORMAL LIMITS. NO DIVERTICULITIS. BLADDER NORMAL. NO PELVIC SOFT TISSUE MASS. NO ABDOMINAL WALL HERNIA. DEGENERATIVE CHANGES ARE PRESENT INCLUDING INCOMPLETE OSSIFICATION OF THE ANTERIOR RING APOPHYSIS AT L4. IMPRESSION: NO ACUTE INTRA-ABDOMINAL OR INTRAPELVIC PATHOLOGY. NO INFLAMMATORY CHANGES ARE PRESENT.
[2023-08-02] MEDS: 0.9 % SODIUM CHLORIDE 1000 ml 1,000 ML IV (10:00)
--- OUTSIDE RECORDS SUMMARY | 2023-08-02 10:04 | XMS_ITS | Clinical Summary ---
Author Name Unknown Organization [facility] Address [place], [place] [address] Care Team Providers Care Material Hauler Name Role Phone HansteOg saenz MD Primary Care Provider + Allergies No known active allergies Medications Medication Sig Dispensed Refills Start Date End Date Status diphenhydrAMINE (BENADRYL) 25 mg capsuleIndications:F acial swelling Take 1 capsule by mouth every 4 hours if needed. 30 capsule 3 09/19/2013 Active omeprazole (PRILOSEC) 20 mg capsuleIndications:G ERD (gastroesophageal reflux disease) Take 1 capsule by mouth once daily before a meal. 30 capsule 2 11/14/2013 Active cetirizine (ZYRTEC) 10 mg tablet Take 1 tablet by mouth once daily. 30 tablet 1 11/20/2013 Active oxybutynin XL (Ditropan XL) 10 mg CR tabletIndications:Ov eractive bladder Take 1 Tablet (10 mg) by mouth once daily. 90 Tablet 3 03/03/2023 Active Active Problems Problem Noted Date Diagnosed Date Other and unspecified hyperlipidemia 04/14/2006 Dermatophytosis of nail 11/29/2005 Resolved Problems Problem Noted Date Diagnosed Date Resolved Date Blepharitis of left eye 08/07/201007/2013 Pure hyperglyceridemia 12/16/200504/14 Esophageal reflux 12/16/2005 09/19/2013 Immunizations Name Administration Dates Next Due Td (Age >=7 Years) 01/20/2004 Tdap 08/14/2012 Family History Medical History Relation Name Comments Diabetes Brother 1 Sean HTN Diabetes Brother 2 [place] HTN Hypertension Mother Diabetes Sister Nicole HTN Relation Name Status Comments Brother 1 Sean Brother 2 [place] Father Mother Alive Sister Nicole Social History Tobacco Use Types Packs/Day Years Used Date Smoking Tobacco: Former Cigarettes 3 0 06/20/1994 - 06/20/1997 Smokeless Tobacco: Never Tobacco Cessation:Counseling Given: Yes Comments:1/2 ppd Alcohol Use Standard Drinks/Week Comments No 0 (1 standard drink = 0.6 oz pur e alcohol) Sex and Gender Information Value Date Recorded Sex Assigned at Not on file Gender Identity Not on file Sexual Orientation Not on file Obstetrics History Last Filed Vital Signs Vital Sign Reading Time Taken Comments Blood Pressure 122/80 03/03/2023 11:07 AM CDT Pulse 84 03/03/2023 11:07 AM CDT Temperature 37 ??C (98.6 ??F) 11/20/2013 12:52 PM CDT Respiratory Rate 16 12/29/2012 12:53 PM CDT Oxygen Saturation 97% 11/20/2013 12:52 PM CDT Inhaled Oxygen Concentration - - Weight 81 kg (178 lb 9.6 oz) 11/20/2013 12:52 PM CDT Height 168 cm (5' 6.14) 11/20/2013 12:52 PM CDT Body Mass Index 28.7 11/20/2013 12:52 PM CDT Plan of Treatment Upcoming Encounters Date Type Department Care Team (Late st Contact Info) Description 09/01/2023 12:45 PM CDT Office Visit [facility] [address] [place] [id number] Jennifer Cervantes MD [address] [place] [address] Health Maintenance Due Date Last Done Comments COVID-19 vaccine series (#1) 1968 Depression screening for age 12+ 1980 HIV for age 15-65 02/01/1983 BMI (ht and wt on same day) for age 18+ 02/01/1986 Colonoscopy through age 75 02/01/2013 Zoster (shingles) series for age 50+ (1 of 2) 02/01/2018 Lipids for age 45-75 08/01/2018 08/01/2013, 08/19/2012, 06/18/2011, Additional history exists Tetanus booster 08/14/2022 08/14/2012, 01/20/2004 Influenza for age 50-64 02/18/2023 Hepatitis C screening for age 18-79 Completed 03/22/2005 Tdap Completed 08/14/2012 Pneumococcal series for age 6-64 Aged Out No longer eligible based on patient's age to complete this topic Care Teams Material Hauler Relationship Specialty Start Date End Date Votel, Og Serna MD [address] [place], [place] [id number] PCP - General 08/12/08
--- NOTE | 2023-08-02 10:08 | ED_ITS ---
HPI - Abdominal Pain General Date Seen: 08/02/23 Chief Complaint: Abdominal Pain Stated Complaint: pain in center of chest down into stomach Time Seen by Provider: 08/02/23 09:12 Source: patient Mode of arrival: ambulatory Limitations: no limitations History of Present Illness HPI narrative: Patient is a delightful 53-year-old gentleman who presents here with upper abdominal discomfort, the comes and goes over the time course of a year. He describes it over the last 3 weeks, improved with going up on his Prilosec 40 mg a day from his previous 20 mg, he has had however worsening in the last week of discomfort he describes in the central region. He has worsening after he eats with a couple episodes of vomiting. He has never before vomited up blood or any had any dark vomitus. But does feel better after the vomiting occurs. No previous history of previous EGD. He is a nonsmoker, uses occasional alcohol probably less than 5 oz a week. Does not use any NSAIDs associated with this. Does have some the other GI concerns, but underwent a normal colonoscopy in the last 6 months. No previous history of testing for H pylori. Has seen also [facility] Denies any fevers chills weight loss, denies a history of malignancy. Works at [employer] here in [facility]. Sees for primary care. MD elicited complaint: abdominal pain Onset (ago): week(s) Pain Consistency: constant Location: epigastric Severity: moderate Quality: cramping and stabbing Radiation: bilateral flank Migration to: no migration Exacerbating factors: eating Relieving factors: vomiting Context: history of similar episodes Associated symptoms: nausea and vomiting Related Data Patient : No Home Medications Medication Instructions Recorded Confirmed Diltiazem 2% ointment topical BID 06/15/23 07/05/23 omeprazole 40 mg capsule,delayed 40 mg PO DAILY 08/02/23 08/02/23 release Previous Rx's Medication Instructions Recorded omeprazole 20 mg capsule,delayed 20 mg PO QDAY #30 caps 07/05/23 release Allergies Allergy/AdvReac Type Severity Reaction Status Date / Time No Known Drug Allergies Allergy Verified 07/05/23 14:51 Review of Systems Status of ROS Reports: 10 or more systems reviewed and unremarkable except as noted in History and below [facility] Medical History Irritable bowel syndrome ?K58.9 - Irritable bowel syndrome without diarrhea (ICD-10) Urinary tract infection ?N39.0 - Urinary tract infection, site not specified (ICD-10) Dyspepsia ?R10.13 - Epigastric pain (ICD-10) Anxiety ?F41.9 - Anxiety disorder, unspecified (ICD-10) Hemorrhoids ?K64.9 - Unspecified hemorrhoids (ICD-10) Urinary frequency ?R35.0 - Frequency of micturition (ICD-10) Dysuria ?R30.0 - Dysuria (ICD-10) 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 (ICD-10) Coccydynia ?M53.3 - Sacrococcygeal disorders, not elsewhere classified (ICD-10) Abdominal pain ?R10.9 - Unspecified abdominal pain (ICD-10) Elevated alkaline phosphatase level ?R74.8 - Abnormal levels of other serum enzymes (ICD-10) Gout ?M10.9 - Gout, unspecified (ICD-10) Rectal pain ?K62.89 - Other specified diseases of anus and rectum (ICD-10) Social History (Updated 06/29/23 @ 12:34 by Zully Garcia ~ [facility]) What is your current living situation?: I presently have a place to live Problems where you live: no known problems In the past 12 months, utilities in danger of being shut off: no In past 12 months, lack of transportation kept you from medical appts, meetings, work, or getting things needed for daily living: no In the past 12 mos, have been you worried that your food would run out before you had money to buy more?: never true In the past 12 mos, the food you bought just didn't last and you didn't have money to buy more?: never true Smoking Status: Former smoker Do you use any of these nicotine containing products: None Second hand tobacco smoke exposure: No How often do you have a drink containing alcohol: monthly or less How many standard drinks containing alcohol do you have on a typical day: 1 or 2 How often do you have six or more drinks on one occasion: Never AUDIT-C Alcohol total score: 1 Non-prescribed substance use: denies use How often does anyone, including family, friends and others, physically hurt you : never How often does anyone, including family, friends and others, insult or talk down to you: never How often does anyone, including family, friends and others, threaten you with harm: never How often does anyone, including family, friends and others, scream or curse at you: never Little interest or pleasure in doing things: not at all Feeling down, depressed, or hopeless: not at all Exam Narrative: Exam Narrative: Patient is speaking normally, no problem with slurring words, oriented x3. Head eyes ears nose and throat exam show equal pupils, no scleral icterus, extraocular muscles are normal, no facial droop, speech is normal, trachea normal and midline. Thyroid normal midline palpable not enlarged. Chest shows symmetrical rise bilaterally, normal auscultation with no wheezes, no increased work of breathing, no overt bruising or lesions seen, no tenderness is noted on auscultation. Heart sounds normal with no S3-S4 no murmurs clicks or gallops. Abdomen shows no obvious masses or hepatosplenomegaly, no organomegaly, bowel sounds are normal in all quadrants. No tenderness is noted also in all quadrants. Upper and lower extremities show normal power, normal range of motion, pulses are normal, sensations normal, fine motor movements are normal, pelvis is stable to rocking. Cervical spine shows normal range of motion, and palpably not tender. Thoracic spine shows normal range of motion, and palpably not tender, lumbar spine shows no tenderness to palpation percussion and is otherwise normal range of motion. Skin shows no rashes, petechiae or eccymosis. Const: Vital Signs, click to edit/add: Vital Signs - 24 hr 08/02/23 09:01 Temperature 97.3 F L Pulse Rate [Right Pulse Oximeter] 64 Respiratory Rate 18 Blood Pressure [Ri ght Upper Arm] 149/78 H Pulse Oximetry 97 Oxygen Delivery Me thod Room Air Documenting provider has reviewed patient's vital signs: yes Course Course ED Course: Discussed with the patient, and the educational sign language interpreter, all laboratory tests were reasonable, I reviewed the CT and did not see anything acute there. I will remove review the final report and get back to him through the activities assistant if he does have any issues continue to take the Protonix, I will do the stool study, and I did contact his doctor, who suggested we do the stool study for the antigen. He will return if signs symptoms of worsening which we discussed. Vital Signs Vital signs: Initial Vital Signs Temperature 97.3 F L 08/02/23 09:01 Temperature Source Temporal Artery Scan 08/02/23 09:01 Pulse Rate 64 08/02/23 09:01 Pulse Rhythm Regular 08/02/23 09:01 Respiratory Rate 18 08/02/23 09:01 Blood Pressure 149/78 H 08/02/23 09:01 Blood Pressure Mean 101 08/02/23 09:01 Blood Pressure Position Sitting 08/02/23 09:01 Pulse Oximetry 97 08/02/23 09:01 Oxygen Delivery Method Room Air 08/02/23 09:01 Vital Signs Temperature 97.3 F L 08/02/23 09:01 Pulse Rate 64 08/02/23 09:01 Respiratory Rate 18 08/02/23 09:01 Blood Pressure 149/78 H 08/02/23 09:01 Pulse Oximetry 97 08/02/23 09:01 Oxygen Delivery Method Room Air 08/02/23 09:01 Temperature 97.3 F L 08/02/23 09:01 Pulse Rate 64 08/02/23 09:01 Respiratory Rate 18 08/02/23 09:01 Blood Pressure 149/78 H 08/02/23 09:01 Pulse Oximetry 97 08/02/23 09:01 Oxygen Delivery Method Room Air 08/02/23 09:01 Medications Administered Medications: Discontinued Medications Generic Name Dose Route Start Last Admin Trade Name Freq PRN Reason Stop Dose Admin Sodium Chloride 1,000 mls @ 1,000 mls/hr 08/02/23 10:00 08/02/23 10:00 0.9 % Sodium Chloride 1000 Ml IV 08/02/23 10:59 1,000 mls/hr .Q1H IVAN Administration MDM - Abdominal Pain MDM Narrative Medical decision making narrative: During this evaluation of this patient I considered multiple differential diagnosis is which included the life-threatening such as appendicitis, aortic aneurysm, mesenteric ischemia, bowel perforation, volvulus, and bowel obstruction. Other differential diagnosis is include but are not limited to cholecystitis, pancreatitis, hepatitis, gastritis, GERD, diverticulitis, peptic ulcer disease, pyelonephritis/UTI, renal colic/stone, testicular torsion as well as other acute scrotal processes, inflammatory bowel disease, as well as other etiologies Medical Records Attestation: I reviewed the patient's medical records. Lab Data Attestation: I reviewed the patient's lab results. Labs: Lab Results 08/02/23 08/02/23 Range/Units 09:50 09:55 WBC 3.91 L (4.50-11.00) K/uL RBC 5.22 (4.30-5.90) m/uL Hgb 15.9 (13.5-17.5) gm/dL Hct 45.7 (37.0-53.0) % MCV 88 (80-100) fL MCH 31 (26-34) pg MCHC 35 (32-36) gm/dL RDW Coeff of Jacklyn 12.1 (11.5-15.5) % Plt Count 209 (140-440) K/uL Neut % (Auto) 49.8 (42.0-72.0) % Lymph % (Auto) 38.4 (20-44) % [place] % (Auto) 9.5 (0.0-11.0) % Eos % (Auto) 1.8 (0.0-7.0) % Baso % (Auto) 0.5 (0.0-3.0) % Neut # (Auto) 1.90 (1.7-7.0) K/uL Lymph # (Auto) 1.50 (0.90-2.90) K/uL [place] # (Auto) 0.40 (0.00-0.90) K/UL Eos # (Auto) 0.10 (0.00-0.50) K/uL Baso # (Auto) 0.00 (0.00-0.30) K/uL Abs Immat Gran (auto) 0.00 (0.00-0.30) K/uL Imm/Tot Granulo (auto) 0.0 % Sodium 138 (135-149) mmol/L Potassium 4.1 (3.6-5.1) mmol/L Chloride 109 (96-114) mmol/L Carbon Dioxide 23 (20-32) mmol/L Anion Gap 6 L (7-15) mEq/L BUN 13 (7-30) mg/dL Creatinine 0.9 (0.5-1.5) mg/dL Estimated Creat Clear 86.71 Estimated GFR 101 ml/min Glucose 97 (60-115) mg/dL Calcium 9.0 (8.4-10.6) mg/dL Total Bilirubin 0.6 (0.1-1.5) mg/dL Direct Bilirubin 0.0 (0.0-0.5) mg/dL AST 34 (12-35) U/L ALT 32 (4-50) U/L Alkaline Phosphatase 129 (40-150) U/L C-Reactive Protein < 0.5 L (0.5-1.0) mg/dL Total Protein 7.5 (6.0-8.3) g/dL Albumin 4.4 (3.3-5.0) g/dL Amylase 98 H (18-89) U/L Lipase 72 (23-300) U/L POC Troponin I 0.00 L (0.01-0.04) ng/ml Imaging Data CT scan - abdomen: Attestation: I have reviewed the pertinent imaging results. My impression: I reviewed the CT scan, with oral, water along with the IV contrast I did not see any acute issues. Mild diverticulosis is noted. No masses. Radiologist's impression: I reviewed the radiologist's impression, there are no acute changes. ECG Data Attestation: I personally reviewed and interpreted this ECG as follows: ECG interpretation date: 08/02/23 Prior ECG tracings: available for review Ischemic changes: non-specific ST-T wave changes Interpretation: EKG shows mild sinus bradycardia, with a ventricular rate of 54, nonspecific ST wave changes unchanged from previous EKG Discharge Plan Discharge Clinical Impression: Abdominal pain, epigastric Patient Disposition: Home, Self-Care Condition: Stable Instructions: Epigastric Pain (ED), Upper Endoscopy (DC) Additional Instructions: You will receive a call within the next few days to schedule your Endoscopy. If you have any questions, please call the Endoscopy Sex Offender Treatment Professional at [phone]. We will have you continue with your Protonix, daily they will call you with your appointment for endoscopy, please bring back your stool specimen and we will check for the H pylori. If he starts throw up blood, that he should return otherwise I think this will be normal. I will also review the CT report once a comes back but it looks fantastic. I did not see any issue associated with this and her blood tests were all okay. Continue with avoidance of caffeine, alcohol, and nonsteroidals. Activity Level: Light activity Prescriptions: No Action Diltiazem 2% ointment topical BID omeprazole 20 mg capsule,delayed release(DR/EC) 20 mg PO QDAY Qty: 30 0RF omeprazole 40 mg capsule,delayed release(DR/EC) 40 mg PO DAILY Follow Up/Referrals: Dustin Thrasher MD [Primary Care Provider] - Stand Alone Forms: [employer] Info Instructions
[2023-08-02 10:11] LABS: Basophils Percent Auto 0.5 % (0.0-3.0); Eosinophils Percent Auto 1.8 % (0.0-7.0); Hematocrit 45.7 % (37.0-53.0); Hemoglobin* 15.9 gm/dL (13.5-17.5); Lymphocytes Percent Auto 38.4 % (20-44); Mean Corpuscular HGB Conc 35 gm/dL (32-36); Mean Corpuscular Hemoglobin 31 pg (26-34); Mean Corpuscular Volume 88 fL (80-100); Monocytes Percent Auto 9.5 % (0.0-11.0); Neutrophils Percent Auto 49.8 % (42.0-72.0); Platelet Count* 209 K/uL (140-440); RDW Coefficient of Variation % 12.1 % (11.5-15.5); Red Blood Count 5.22 m/uL (4.30-5.90); White Blood Count* 3.91 K/uL (4.50-11.00)
[2023-08-02 10:12] LABS: Slide Review Reflex No
[2023-08-02 10:18] LABS: Albumin* 4.4 g/dL (3.3-5.0); Chloride* 109 mmol/L (96-114); Potassium* 4.1 mmol/L (3.6-5.1); Sodium* 138 mmol/L (135-149)
[2023-08-02 10:20] LABS: Amylase* 98 U/L (18-89); Creatinine* 0.9 mg/dL (0.5-1.5); Est. Creatinine Clearance* 86.71; Estimated Glomerular Filt Rate 101 ml/min
[2023-08-02 10:21] LABS: Alkaline Phosphatase* 129 U/L (40-150); Anion Gap 6 mEq/L (7-15); Aspartate Amino Transferase* 34 U/L (12-35); Bilirubin Total* 0.6 mg/dL (0.1-1.5); Blood Urea Nitrogen* 13 mg/dL (7-30); Carbon Dioxide* 23 mmol/L (20-32); Glucose* 97 mg/dL (60-115); Lipase* 72 U/L (23-300); Total Protein* 7.5 g/dL (6.0-8.3)
[2023-08-02 10:22] LABS: Alanine Aminotransferase* 32 U/L (4-50)
[2023-08-02 10:25] LABS: C Reactive Protein* < 0.5 mg/dL (0.5-1.0)
[2023-08-02 14:20] LABS: H pylori Ag Stool* Negative (Negative)
== END 2023-08-02 12:08 | disposition home or self-care (01) ==
PROVIDERS: Emergency Provider Family Medicine; PCP Internal Medicine
DX: R10.13 Epigastric pain (principal)
CPT/HCPCS: 36415; 74177; 80048; 80076; 82150; 83690; 84484; 85025; 86140; 87338; 93005; 99284; T1013; J7030; Q9967

== ENCOUNTER 2023-08-15 19:41 | Emergency (ER) | payer BC, MEDICAID, SELFPAY ==
[2023-08-15 19:59] VITALS: BP 137/78; PULSE 67; RESP 18; TEMP 36.4; O2SAT 96; BMI 27.2
[2023-08-15 19:59] LABS: Appearance Urine Clear (Clear); Bilirubin Urine Negative (Negative); Blood Urine Trace-intact (Negative); Color Urine Yellow (Yellow); Glucose Urine Negative (Negative); Ketones Urine Negative (Negative); Leukocyte Esterase Urine Negative (Negative); Nitrite Urine Negative (Negative); Protein Urine Negative (Negative); Urobilinogen Urine 0.2 (0.2-1.0); pH Urine 7.5 (5.0-8.5)
[2023-08-15 20:08] LABS: RBC Urine 0-2 (0-2); WBC Urine 0-2 (0-5)
--- NOTE | 2023-08-15 22:34 | ED.GENADULT ---
HPI - General Adult General Chief complaint: Back Injury/Pain Stated complaint: Back pain and painful urination Time Seen by Provider: 08/15/23 22:34 History of Present Illness HPI narrative: Pt c/o mid-back pain and chest pain for three days that worsens with movement. Pt also states he feels like he is not able to empty his bladder completely and that when he pees it is with less force. Pt states he takes Flomax. Pt states he has lost 10 pounds in this last month. 53-year-old man presenting to the emergency department with a number of concerns. Has a history of overactive bladder. He describes a tight feeling in his epigastrium is well. Actually pending tomorrow for an EGD. Is also concerned of not being able to empty his bladder completely and feels that has been urinating with less force. Is taking Flomax. Has had appointments with Urology with a history of urinary incontinence or overactive bladder. He says no scopes have been done. It sounds as though was intolerant of tolterodine or similar. Reviewing records shows that he has been screened recently negative for H pylori but believes been treated for this in the past as well. In July also with unremarkable abdomen pelvis CT. He also has been complaining of pain that seems to be worse with movement particularly in his back, upper back. No specific injury. Related Data Home Medications Medication Instructions Recorded Confirmed calcium carbonate 200 mg calcium 200 - 400 mg PO QDAY PRN 08/03/23 08/15/23 (500 mg) chewable tablet (Tums) esomeprazole magnesium 20 mg 20 mg PO QDAY 08/03/23 08/15/23 capsule,delayed release (Nexium) Previous Rx's Medication Instructions Recorded tamsulosin 0.4 mg capsule (Flomax) 0.4 mg PO QDAY BPH #90 caps 08/03/23 trazodone 50 mg tablet 50 - 100 mg (1 - 2 x 50 mg) PO QHS 08/03/23 PRN sleep #60 tabs Allergies Allergy/AdvReac Type Severity Reaction Status Date / Time No Known Drug Allergies Allergy Verified 08/15/23 20:07 Review of Systems Status of ROS: Reports: 6 or more systems reviewed and unremarkable except as noted in History and below [facility] Medical History Irritable bowel syndrome ?K58.9 - Irritable bowel syndrome without diarrhea (ICD-10) Urinary tract infection ?N39.0 - Urinary tract infection, site not specified (ICD-10) Dyspepsia ?R10.13 - Epigastric pain (ICD-10) Anxiety ?F41.9 - Anxiety disorder, unspecified (ICD-10) Hemorrhoids ?K64.9 - Unspecified hemorrhoids (ICD-10) Urinary frequency ?R35.0 - Frequency of micturition (ICD-10) Dysuria ?R30.0 - Dysuria (ICD-10) 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 (ICD-10) Coccydynia ?M53.3 - Sacrococcygeal disorders, not elsewhere classified (ICD-10) Abdominal pain ?R10.9 - Unspecified abdominal pain (ICD-10) Elevated alkaline phosphatase level ?R74.8 - Abnormal levels of other serum enzymes (ICD-10) Gout ?M10.9 - Gout, unspecified (ICD-10) Rectal pain ?K62.89 - Other specified diseases of anus and rectum (ICD-10) Social History What is your current living situation?: I presently have a place to live Problems where you live: no known problems In the past 12 months, utilities in danger of being shut off: no In past 12 months, lack of transportation kept you from medical appts, meetings, work, or getting things needed for daily living: no In the past 12 mos, have been you worried that your food would run out before you had money to buy more?: never true In the past 12 mos, the food you bought just didn't last and you didn't have money to buy more?: never true Smoking Status: Former smoker Do you use any of these nicotine containing products: None Second hand tobacco smoke exposure: No How often do you have a drink containing alcohol: monthly or less How many standard drinks containing alcohol do you have on a typical day: 1 or 2 How often do you have six or more drinks on one occasion: Never AUDIT-C Alcohol total score: 1 Non-prescribed substance use: denies use How often does anyone, including family, friends and others, physically hurt you: never How often does anyone, including family, friends and others, insult or talk down to you: never How often does anyone, including family, friends and others, threaten you with harm: never How often does anyone, including family, friends and others, scream or curse at you: never Little interest or pleasure in doing things: not at all Feeling down, depressed, or hopeless: not at all Exam Narrative: Exam Narrative: Pleasant. Animated. Breathing easily. Lungs are clear. He is sore in the periscapular musculature/rhomboids in particular. Heart with regular rate and rhythm. Abdomen is a little overweight. Soft. Somewhat uncomfortable to palpation about the xiphoid in particular. Abdomen otherwise is soft nontender without apparent mass. Is not tender in the suprapubic area or flanks. Extremities well perfused. Lower extremities without edema. Const: Vital Signs, click to edit/add: Vital Signs - 24 hr 08/15/23 19:59 Temperature 97.6 F Pulse Rate [Pulse Oximeter] 67 Respiratory Rate 18 Blood Pressure [Ri ght Upper Arm] 137/78 Pulse Oximetry 96 Oxygen Delivery Me thod Room Air Documenting provider has reviewed patient's vital signs: yes Course Vital Signs Vital signs: Initial Vital Signs Temperature 97.6 F 08/15/23 19:59 Temperature Source Temporal Artery Scan 08/15/23 19:59 Pulse Rate 67 08/15/23 19:59 Respiratory Rate 18 08/15/23 19:59 Blood Pressure 137/78 08/15/23 19:59 Blood Pressure Mean 97 08/15/23 19:59 Blood Pressure Position Sitting 08/15/23 19:59 Pulse Oximetry 96 08/15/23 19:59 Oxygen Delivery Method Room Air 08/15/23 19:59 Vital Signs Temperature 97.6 F 08/15/23 19:59 Pulse Rate 67 08/15/23 19:59 Respiratory Rate 18 08/15/23 19:59 Blood Pressure 137/78 08/15/23 19:59 Pulse Oximetry 96 08/15/23 19:59 Oxygen Delivery Method Room Air 08/15/23 19:59 Temperature 97.6 F 08/15/23 19:59 Pulse Rate 67 08/15/23 19:59 Respiratory Rate 18 08/15/23 19:59 Blood Pressure 137/78 08/15/23 19:59 Pulse Oximetry 96 08/15/23 19:59 Oxygen Delivery Method Room Air 08/15/23 19:59 Medical Decision Making MDM Narrative Medical decision making narrative: I wonder if Mr. Hollins has developed some degree of pelvic floor issues/dysfunction given review of records and some underlying anxiety about condition. Bladder scanned here today for 13 mL. Urinalysis is unremarkable without evidence of infection. Does not appear to be retaining urine per his concern. Endoscopy is pending tomorrow with epigastric area discomfort though I think some of it is exacerbated by worrying the area and irritating the xiphoid area. We did review anatomy. Upper back with reproducible rhomboid area pain. Does have follow-up scheduled with Urology for further conversation. Not sure that more workup in the emergency department will be beneficial or necessary at this time. See patient discharge plan Medical Records Medical records reviewed: Yes I reviewed the patient's medical records Lab Data Lab results reviewed: Yes I reviewed the patient's lab results Labs: Lab Results 08/15/23 Range/Units 19:47 Urine Color Yellow (Yellow) Urine Appearance Clear (Clear) Urine pH 7.5 (5.0-8.5) Ur Specific Marlow 1.020 (1.000-1.030) Urine Protein Negative (Negative) Urine Glucose (UA) Negative (Negative) Urine Ketones Negative (Negative) Urine Blood Trace-intact A (Negative) Urine Nitrite Negative (Negative) Urine Bilirubin Negative (Negative) Urine Urobilinogen 0.2 (0.2-1.0) Ur Leukocyte Esterase Negative (Negative) Urine RBC 0-2 (0-2) Urine WBC 0-2 (0-5) Ur Squamous Epith Cells None (None-Few) Urine Bacteria None (None) Discharge Plan Discharge Clinical Impression: Urinary incontinence, Upper back pain Patient Disposition: Home, Self-Care Condition: Stable Additional Instructions: I see no evidence of urinary tract infection in your urine today. And I cannot see a connection between that and your periscapular pain. Yes, I would for follow-up as scheduled with Urology. You can certainly ask them whether not they think that direct visualization, cystoscopy, would be indicated given your symptoms. There also physical therapists who specialize in some of the problems that you are having. Would not hurt to continue exercises to strengthen your upper back. See handout. Could do these daily. Good luck tomorrow morning with your endoscopy. I spoke to our vest front presser staff here and they informed me that in order to have access to your medical record, you need to set this up through the vest front presser at the clinic. You would be accessing ?MyChart? No veo evidencia de infecci?n del tracto urinario en mccartney orina hoy. Y no puedo kenisha savita conexi?n entre eso y mccartney dolor periescapular. S?, lo mariela?a para el seguimiento seg?n lo programado con Urolog?a. Ciertamente, puede preguntarles si no creen que la visualizaci?n directa, la cistoscopia, estar?a indicada dados young s?ntomas. Tambi?n hay fisioterapeutas que se especializan en algunos de los problemas que tienes. No estar?a de m?s continuar con los ejercicios para fortalecer la parte superior de la espalda. Danitza el folleto. Podr?a hacer esto a diario. [place] suerte ma?venessa por la ma?venessa con mccartney endoscopia. Habl? con nuestro personal de recepci?n aqu? y me informaron que para tener acceso a mccartney historial m?dico, debe configurarlo a kanika?s de la recepci?n de la cl?meg. Estar?a accediendo a MyChart Prescriptions: No Action esomeprazole magnesium [Nexium] 20 mg capsule,delayed release(DR/EC) 20 mg PO QDAY calcium carbonate [Tums] 200 mg calcium (500 mg) tablet,chewable 200 - 400 mg PO QDAY PRN trazodone 50 mg tablet 50 - 100 mg PO QHS PRN (Reason: sleep) Qty: 60 5RF tamsulosin [Flomax] 0.4 mg capsule 0.4 mg PO QDAY Qty: 90 1RF Follow Up/Referrals: Dustin Thrasher MD [Primary Care Provider] - Stand Alone Forms: [facility] Info Instructions
== END 2023-08-16 00:54 | disposition home or self-care (01) ==
PROVIDERS: Emergency Provider Family Medicine; PCP Internal Medicine
DX: M54.9 Dorsalgia, unspecified (principal)
CPT/HCPCS: 81001; 99283; 99284

== ENCOUNTER 2024-08-11 13:29 | Emergency (ER) | payer BC, MEDICAID, SELFPAY ==
--- OUTSIDE RECORDS SUMMARY | 2024-08-11 13:32 | XMS_ITS | Clinical Summary ---
Author Organization [facility] Address [address] [place] [address] Care Team Providers Care Chaser Tar Name Role Phone Unavailable Primary Care Provider Unavailabl e Allergies Active Allergy Reactions Criticality Noted Date Comments Sulfamethoxazole-Trimethopr im Rash 08/24/2023 Mild rash on righ hand Medications RectaSmoothe 5 % cream Apply topically to affected area(s) 2 times daily if needed. Active esomeprazole (NexIUM 24HR) 20 mg capsule Take 20 mg by mouth once daily. Active calcium carbonate (Tums) 200 mg calcium (500 mg) chewable tablet Chew 500 mg by mouth three times daily with meals. Active MULTIVITAMIN ORAL Take by mouth. Activ e Active Problems Problem Noted Date Diagnosed Date Other and unspecified hyperlipidemia 04/14/2006 Dermatophytosis of nail 11/29/2005 Resolved Problems Problem Noted Date Diagnosed Date Resolved Date Blepharitis of left eye 08/07/2010 04/0 07/2013 Pure hyperglyceridemia 12/16/200504/14 Esophageal reflux 12/16/2005 09/19/2013 Immunizations Name Administration Dates Next Due Td (Age >=7 Years) 01/20/2004 Tdap 06/29/2023,08/14/2012 Family History Medical History Relation Name Comments Diabetes Brother 1 Sean HTN Diabetes Brother 2 [place] HTN Hypertension Mother Diabetes Sister Nicole HTN Relation Name Status Comments Brother 1 Sean Brother 2 Migue Father Mother Alive Sister Nicole Social History Tobacco Use Types Packs/Day Years Used Date Smoking Tobacco: Former Cigarettes 0 06/20/1994 - 06/20/1997 Smokeless Tobacco: Never Tobacco Cessation:Counseling Given: Not Answered Comments:1/2 ppd Alcohol Use Standard Drinks/Week Comments Yes 0 (1 standard drink = 0.6 oz pur e alcohol) 1-2 occasional Social Connections Answer Date Recorded Frequency of Communication with Friends and Fami ly Not on file 08/12/2023 Sex and Gender Information Value Date Recorded Sex Assigned at Not on file Legal Sex Male 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 ENGINEER Gender Identity Not on file Sexual Orientation Not on file Occupation Industry Job Start Date Job End Date unemployed Not on file Not on file Not on file Obstetrics History Last Filed Vital Signs Vital Sign Reading Time Taken Comments Blood Pressure 136/88 08/24/2023 9:55 AM PASSENGER LOCOMOTIVE ENGINEER Pulse 66 08/24/2023 9:55 AM PASSENGER LOCOMOTIVE ENGINEER Temperature 36.8 C (98.3 F) 08/19/2023 1:55 PM PASSENGER LOCOMOTIVE ENGINEER Respiratory Rate 16 12/29/2012 12:53 PM CDT Oxygen Saturation 96% 08/24/2023 9:55 AM PASSENGER LOCOMOTIVE ENGINEER Inhaled Oxygen Concentration - - Weight 77.6 kg (171 lb) 08/24/2023 9:55 AM PASSENGER LOCOMOTIVE ENGINEER Height 168 cm (5' 6.14) 11/20/2013 12:52 PM CDT Body Mass Index 27.48 11/20/2013 12:52 PM CDT Plan of Treatment Health Maintenance Due Date Last Done Comments Depression screening for age 12+ 1980 BMI (ht and wt on same day) for age 18+ 02/01/1986 Colonoscopy through age 75 02/01/2013 Pneumococcal series for age 50+ (1 of 1 - PCV) 02/01/2018 Zoster (shingles) series for age 50+ (1 of 2) 02/01/2018 Lipids for age 45-75 08/01/2018 08/01/2013, 08/19/2012, 06/18/2011, Additional history exists COVID-19 vaccine series ( - 2023- season) 2024 Influenza for age 50-64 02/19/2024 Tetanus booster 06/29/2033 06/29/2023, 07/22, 01/20/2004 Hepatitis C screening for ag e 18-79 Completed 03/22/2005 Tdap Completed 06/29/2023, 08/14/2012 HIV for age 15-65 Completed 08/24/2023 Procedures Procedure Name Priority Date/Time Associated Diagnosis Comments ANTI HIV 1/2 Routine 08/24/2023 10:34 AM PASSENGER LOCOMOTIVE ENGINEER Encounter for screening for HIV LIPID PANEL W REFLEX MEASURED LDL Routine 08/01/2013 9:36 AM PASSENGER LOCOMOTIVE ENGINEER Routine general medical examination at a health care facility ANTI HCV Timed 03/22/2005 10:42 AM CDT from Last 3 Months or Most Recently Relevant to Health Maintenance Results * ANTI HIV 1/2 (08/24/2023 10:34 AM PASSENGER LOCOMOTIVE ENGINEER) [facility] HIV-1/HIV-2 SCREEN Non-Reacti ve Non-Reacti ve 08/24/2023 5:54 PM PASSENGER LOCOMOTIVE ENGINEER [facility] Comment:HIV-1 p24 and HIV-1/ HIV-2 Ab Not Detected. Blood BLOOD SPECIMEN / Unknown Venipuncture / Unknown 08/24/2023 10:34 AM PASSENGER LOCOMOTIVE ENGINEER 08/24/2023 10:35 AM PASSENGER LOCOMOTIVE ENGINEER us Jeannette Soares MD SEND OUTS Fi nal Result [facility] [address] [place] [address], [place] * (ABNORMAL) LIPID PANEL W REFLEX MEASURED LDL (08/01/2013 9:36 AM PASSENGER LOCOMOTIVE ENGINEER) [facility] CHOLESTEROL,TOTAL 153 100 - 199 mg/dL 08/01/2013 10:10 AM [facility] TRIGLYCERIDES 155(H) <150 mg/dL 08/01/2013 10:10 AM [facility] HDL CHOLESTEROL 37(L) >40 mg/dL 4 10:10 AM [facility] NON-HDL CHOLESTEROL 116 <145 mg/dl 08/01/2013 10:10 AM [facility] CHOL/HDL RATIO 4.14 <4.50 08/01/2013 10:10 AM [facility] LDL CHOLESTEROL 85 <=130 mg/dL 08/01/2013 10:10 AM [facility] PATIENT STATUS FASTING 08/01/2013 10:10 AM [facility] Blood specimen (specimen) BLOOD SPECIMEN / Unknown Venipuncture / Unknown 08/01/2013 9:36 AM PASSENGER LOCOMOTIVE ENGINEER 08/01/2013 9:36 AM PASSENGER LOCOMOTIVE ENGINEER us Og Villalta MD CHEMISTRY Final Re sult [facility] [address] [place] [address] * ANTI HCV (03/22/2005 10:42 AM CDT) Pathologist [facility] ANTI HCV Non-reactiv e [facility][NOTE 3] 03/22/2005 10:4 2 AM CDT 03/22/2005 5:46 PM CDT Narrative [facility][NOTE 3] - 03/26/2005 3:17 PM CDT Testing Performed By [place], [place] us Bea Garcia MD SEND OUTS Final Result [facility][NOTE 3] [address] [place] [address] from Last 3 Months or Most Recently Relevant to Health Maintenance Insurance [facility] [id number] [place] [id number] ERNESTINE PERSON
--- OUTSIDE RECORDS SUMMARY | 2024-08-11 13:32 | XMS_ITS | Data Portability ---
Author Organization [facility] Address [address] [place] [address] Care Team Providers Care Twister Tender Name Role Phone BRUCETEHARINI [place] Primary Care Provider Assessment No assessment recorded. Plan of Treatment Reminders Order Date Submit Date Provider Last Modified By Organization Details Last Modified Time Details Appointments None record ed. Lab None record ed. Referral None record ed. Procedures None record ed. Surgeries None record ed. Imaging None record ed. Medication Orders None record ed. Patient TargetsNo targets recorded. Patient InstructionsNo instructions recorded. Reason for Referral None Reported. Problems Name Problem SNOMED Code Status Onset Date Resolution Date Notes Provider Name and Address Organization Details Recorded Time Blood in urine 55139854 Active 014 599.70 : HEMATURIA -UNSPECIF IED - Notes:SAW BLOOD-LILIAN PS IN TOILET 1 MONTH AGOHAD DYSURIA -WAS TREATED WITH CIIPRO-FE LT BETTER Not Available [facility] 02:03:18 Problem Notes None recorded. Procedures Surgical History Date Name Laterality Status Provider Name and Address Organization Details Recorded Time 4 CystoscopyMale completed Jennifer Cervantes MD [address], [place], [address], [facility] 08/22/2023 13:40:26 Imaging Results None recorded. Procedure Notes None recorded. Medical Equipment None Reported. Medications Name Sig Start Date Stop Date Status Note LastModified by Organization Details LastModified Time nifedipine 0.1% oint APPLY PEA-SIZED AMOUNT TO ANUS 2-3 TIMES PER DAY FOR 6-8 WEEKS active Not Available Not Available No t Available diltiazem 2% ointment APPLY A PEA-SIZED AMOUNT TO THE AREA TWICE DAILY FOR 4-6 WEEKS active Not Available Not Available No t Available celecoxib 200 mg capsule TAKE 1 CAPSULE BY MOUTH EVERY DAY active Not Available Not Available No t Available trazodone 50 mg tablet TAKE 1-2 TABLETS BY MOUTH EVERY NIGHT AT BEDTIME NEEDED FOR SLEEP active Not Available Not Available No t Available oxybutynin chloride ER 10 mg tablet,exten ded release 24 hr active Not Available Not Available Not Available ciprofloxaci n 500 mg tablet TAKE ONE TABLET BY MOUTH TWICE A DAY FOR UTI active Not Available Not Available No t Available sulfamethoxa zole 800 mg-trimethop rim 160 mg tablet TAKE 1 TABLET BY MOUTH TWICE DAILY active Not Available Not Available No t Available omeprazole 40 mg capsule,maricarmen yed release TAKE 1 CAPSULE BY MOUTH EVERY DAY BEFORE A MEAL active Not Available Not Available No t Available tamsulosin 0.4 mg capsule TAKE 1 CAPSULE BY MOUTH EVERY DAY FOR BPH active Not Available Not Available Not Available doxycycline monohydrate 100 mg capsule TAKE 1 TABLET BY MOUTH TWICE DAILY active Not Available Not Available No t Available esomeprazole magnesium 40 mg capsule,maricarmen yed release TAKE 1 CAPSULE BY MOUTH EVERY DAY active Not Available Not Available No t Available oxybutynin chloride ER 5 mg tablet,exten ded release 24 hr TAKE 1 TABLET BY MOUTH EVERY DAY active Not Available Not Available No t Available codeine 10 mg-guaifenes in 100 mg/5 mL oral liquid TAKE 5 ML BY MOUTH EVERY 6 HOURS NEEDED active Not Available Not Available No t Available methylpredni solone 4 mg tablets in a dose pack FOLLOW PACKAGE DIRECTIONS active Not Available Not Available N ot Available dicyclomine 10 mg capsule TAKE 1 CAPSULE BY MOUTH 4 TIMES DAILY NEEDED FOR COLON SPASM active Not Available Not Available No t Available Natural Fiber Laxative (sugar) oral powder TAKE 1 TABLESPOON BY MOUTH TWICE A DAY NEEDED FOR CONSTIPATIO N active Not Available Not Available No t Available chlorhexidin e gluconate 0.12 % mouthwash SWISH 1/2 OZ FOR 30 SECONDS TWICE A DAY active Not Available Not Available Not Available RectaSmoothe 5 % topical cream APPLY TOPICALLY TO THE AFFECTED AREA 2 TO 3 TIMES DAILY NEEDED active Not Available Not Available No t Available Vitals None Recorded Social History None recorded. Functional Status None recorded. Mental Status None recorded. Family History Nothing Reported. Medical History No medical history recorded. Past Encounters Encounter ID Performer Location Encounter Start Date Encounter Closed Date Diagnosis/Indication Diagnosis SNOMED-CT Code Diagnosis ICD10 Code Diagnosis Note [id number] Jennifer Cervantes MD [facility] [address] [place] [address],[address] [place] [address] 08/22/2023 13:03:22 08/22/2023 14:11:39 Microscopic hematuria 841735017 R31.29 sent for cystoscopy taking flomax now per report (stopped oxybutin)d id discuss dietary changes for frequencys ome early bph symptomsno surgical interventi on Health Concerns Section Related Observation LastModified by Organization Detai ls LastModified Time None Recorded Concern Status LastModified by Organization Details LastModified Time None Recorded Advance Directives Directive None Recorded Payers Encounter Date Sequence Insurance Name Policy Number Policy Leo Covered Member ID Leo Member ID Guarantor Name 08/22/2023 1 [employer] - UCARE - DOS ON OR AFTER 2023 (MEDICAID REPLACEMENT - HMO) [id number] Damon Vargas [id number] Damon Vargas Notes Date Note Type Note Provider Name and Address Organization Details Recorded Time 08/22/2023 text/html patient is here for f/u Jennifer Cervantes MD [address] [place] [address],[address], [place], [address], [facility] 08/22/2023 13:56:51
[2024-08-11 14:02] VITALS: BP 150/83; PULSE 76; RESP 18; TEMP 37.1; O2SAT 94; BMI 28.2
--- NOTE | 2024-08-11 15:54 | ED_ITS ---
HPI - General Adult General Date Seen: 08/11/24 Chief complaint: Cough Stated complaint: bad cough Time Seen by Provider: 08/11/24 15:54 History of Present Illness HPI narrative: 54-year-old gentleman with a past history of chronic low back pain, IBS, dyspepsia, presenting to the ER today with concern for cough. He was seen in clinic 2 days ago on 08/[address] Thrasher. Per clinic notes he had had left ear pain, nasal congestion, cough, body aches. Symptoms for 3 days at the time of the visit. No fevers. Nasal PCR was negative for COVID, influenza a/B, RSV. He was prescribed Augmentin Related Data Home Medications ?Medication ?Instructions ?Recorded ?Confirmed calcium carbonate (Tums) 200 - 400 mg PO QDAY PRN 08/03/23 08/09/24 Previous Rx's ?Medication ?Instructions ?Recorded amoxicillin 875 mg-potassium 1 tab PO BID #14 tabs 08/09/24 clavulanate 125 mg tablet azithromycin 250 mg tablet 250 mg PO DAILY 6 days #6 tabs 08/11/24 (Zithromax) benzonatate 100 mg capsule 100 mg PO TID PRN cough #14 caps 08/11/24 Allergies Allergy/AdvReac Type Severity Reaction Status Date / Time No Known Drug Allergies Allergy Verified 08/09/24 09:34 [facility] Medical History (Updated 08/11/24 @ 17:18 by Miguel Angel Ramírez MD) Otitis media ?H66.90 - Otitis media, unspecified, unspecified ear (ICD-10) Cough ?R05.9 - Cough, unspecified (ICD-10) Irritable bowel syndrome ?K58.9 - Irritable bowel syndrome without diarrhea (ICD-10) Urinary tract infection ?N39.0 - Urinary tract infection, site not specified (ICD-10) Dyspepsia ?R10.13 - Epigastric pain (ICD-10) Anxiety ?F41.9 - Anxiety disorder, unspecified (ICD-10) Hemorrhoids ?K64.9 - Unspecified hemorrhoids (ICD-10) Urinary frequency ?R35.0 - Frequency of micturition (ICD-10) Dysuria ?R30.0 - Dysuria (ICD-10) 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 (ICD-10) Coccydynia ?M53.3 - Sacrococcygeal disorders, not elsewhere classified (ICD-10) Abdominal pain ?R10.9 - Unspecified abdominal pain (ICD-10) Elevated alkaline phosphatase level ?R74.8 - Abnormal levels of other serum enzymes (ICD-10) Gout ?M10.9 - Gout, unspecified (ICD-10) Rectal pain ?K62.89 - Other specified diseases of anus and rectum (ICD-10) Social History What is your current living situation?: I presently have a place to live Problems where you live: no known problems In the past 12 months, utilities in danger of being shut off: no In past 12 months, lack of transportation kept you from medical appts, meetings, work, or getting things needed for daily living: no In the past 12 mos, have been you worried that your food would run out before you had money to buy more?: never true In the past 12 mos, the food you bought just didn't last and you didn't have money to buy more?: never true Smoking Status: Former smoker Do you use any of these nicotine containing products: None Second hand tobacco smoke exposure: No How often do you have a drink containing alcohol: monthly or less How many standard drinks containing alcohol do you have on a typical day: 1 or 2 How often do you have six or more drinks on one occasion: Never AUDIT-C Alcohol total score: 1 Non-prescribed substance use: denies use How often does anyone, including family, friends and others, physically hurt you : never How often does anyone, including family, friends and others, insult or talk down to you: never How often does anyone, including family, friends and others, threaten you with harm: never How often does anyone, including family, friends and others, scream or curse at you: never Exam Const: Vital Signs, click to edit/add: Vital Signs - 24 hr 08/11/24 14:02 Temperature 98.8 F Pulse Rate [Pulse Oximeter] 76 Respiratory Rate 18 Blood Pressure [Ri ght Upper Arm] 150/83 H Pulse Oximetry 94 Oxygen Delivery Me thod Room Air Course Vital Signs Vital signs: Initial Vital Signs Temperature 98.8 F 08/11/24 14:02 Temperature Source Temporal Artery Scan 08/11/24 14:02 Pulse Rate 76 08/11/24 14:02 Respiratory Rate 18 08/11/24 14:02 Blood Pressure 150/83 H 08/11/24 14:02 Blood Pressure Mean 105 08/11/24 14:02 Pulse Oximetry 94 08/11/24 14:02 Oxygen Delivery Method Room Air 08/11/24 14:02 Vital Signs Temperature 98.8 F 08/11/24 14:02 Pulse Rate 76 08/11/24 14:02 Respiratory Rate 18 08/11/24 14:02 Blood Pressure 150/83 H 08/11/24 14:02 Pulse Oximetry 94 08/11/24 14:02 Oxygen Delivery Method Room Air 08/11/24 14:02 Temperature 98.8 F 08/11/24 14:02 Pulse Rate 76 08/11/24 14:02 Respiratory Rate 18 08/11/24 14:02 Blood Pressure 150/83 H 08/11/24 14:02 Pulse Oximetry 94 08/11/24 14:02 Oxygen Delivery Method Room Air 08/11/24 14:02 Medications Administered Medications: Generic Name Dose Route Start Last Admin Trade Name Freq PRN Reason Stop Dose Admin Oxymetazoline HCl 1 spray 08/11/24 16:12 08/11/24 16:21 Oxymetazoline 0.05% Nasal [place] NOSTRIL-B 1 spray BID PRN Administration Medical Decision Making [facility] Narrative Medical decision making narrative: This patient presents for evaluation of cough, associated with headache, nasal congestion, body aches, nausea, low-grade fevers. Symptoms actually started about 5 days ago on Tuesday. He was seen in the clinic 3 days ago with a negative influenza/RSV/COVID PCR. He was started on Augmentin for left ear infection. Today on exam his left ear actually looks good. It appears that the infection has gotten better. He does have significant cough here in the ER but no hypoxia or respiratory distress. He is not having any wheezing or bronchospasm. Chest x-ray is obtained and does show evidence for a subtle left lower lobe infiltrate, indicative of a community-acquired pneumonia. He has been on Augmentin now for 3 days (, Tuesday, Tuesday) and is not feeling better yet. Difficult to say if we need to change antibiotics or if he just needs more time on Augmentin. Overall, I think it is reasonable to have him switch from Augmentin to Azithromycin which would cover community-acquired pneumonia and also potential atypical pathogens like mycoplasma. There is no signs at this point of serious bacterial infection such as on go OM, RPA, epiglottitis, REIN[employer]ING [employer] WORK[employer], strep pharyngitis, pneumonia, sinusitis, meningitis, bacteremia, serious bacterial infection. There are no significant gastrointestinal symptoms at this point and no signs of dehydration. He does has significant nasal congestion, improved with Afrin here in the ER. Will send home with prescription for Azithromycin. Also Tessalon for cough Close followup with primary care physician is indicated. Return to ED for worsening cough or trouble breathing, fever > 103, protracted vomiting, confusion, or other worsening. Imaging Data Chest x-ray: Attestation: I have reviewed the pertinent imaging results. My impression: Subtle left lower lobe infiltrate Radiologist's impression: IMPRESSION: Patchy left retrocardiac opacification may represent a developing pneumonia in the appropriate clinical setting. Discharge Plan Discharge Clinical Impression: Atypical pneumonia Patient Disposition: Home, Self-Care Condition: Stable Instructions: Upper Respiratory Infection (DC), Community Acquired Pneumonia (DC) Additional Instructions: As we discussed, I suspect that your cough, nasal congestion, headache, and symptoms are either being caused by a virus or by a lung infection called ?atypical pneumonia. ? To treat this, you should stop taking your current antibiotic (Augmentin) and start the new antibiotic today (Azithromycin) Continue to drink plenty of fluids and stay hydrated. Use Tylenol or ibuprofen if needed for fever, headache, or body aches. Use the prescription cough medication (Tessalon) as needed to help with cough symptoms. Use the nasal decongestion (oxymetazoline) twice daily as needed for stuffy nose If you are having worsening trouble breathing or any concerns, please come back to the ER or see your doctor right away to be rechecked. Prescriptions: New azithromycin [Zithromax] 250 mg tablet 250 mg PO DAILY 6 Days Qty: 6 0RF Rx Instructions: start on day 2 of therapy benzonatate 100 mg capsule 100 mg PO TID PRN (Reason: cough) Qty: 14 0RF No Action calcium carbonate [Tums] 200 mg calcium (500 mg) tablet,chewable 200 - 400 mg PO QDAY PRN amoxicillin-pot clavulanate 875-125 mg tablet 1 tab PO BID Qty: 14 0RF Follow Up/Referrals: Dustin Thrasher MD [Primary Care Provider] - Stand Alone Forms: [employer] Info Instructions
--- OUTSIDE RECORDS SUMMARY | 2024-08-11 16:17 | XMS_ITS | Clinical Summary ---
Author Organization [employer] [facility] Address [address] [place] [id number] Care Team Providers Care Funeral Home Director Name Role Phone Unavailable Primary Care Provider [...] Brother 1 Sean HTN Diabetes Brother 2 [place] HTN Hypertension Mother Diabetes Sister Nicole HTN [...] on file Legal Sex Male 6:26 AM CURATOR OF COLLECTIONS Gender Identity Not on file Sexual Orientation Not on file Occupation Industry Job Start Date Job End Date unemployed Not on file Not on file Not on file Obstetrics History Last Filed Vital Signs Vital Sign Reading Time Taken Comments Blood Pressure 136/88 08/24/2023 9:55 AM CURATOR OF COLLECTIONS Pulse 66 08/24/2023 9:55 AM CURATOR OF COLLECTIONS Temperature 36.8 C (98.3 F) 08/19/2023 1:55 PM CURATOR OF COLLECTIONS Respiratory Rate 16 12/29/2012 12:53 PM CDT Oxygen Saturation 96% 08/24/2023 9:55 AM CURATOR OF COLLECTIONS Inhaled Oxygen Concentration - - Weight 77.6 kg (171 lb) 08/24/2023 9:55 AM CURATOR OF COLLECTIONS Height 168 cm (5' 6.14) 11/20/2013 12:52 [...] ANTI HIV 1/2 Routine 08/24/2023 10:34 AM CURATOR OF COLLECTIONS Encounter for screening for HIV LIPID PANEL W REFLEX MEASURED LDL Routine 08/01/2013 9:36 AM CURATOR OF COLLECTIONS Routine general medical examination at a health care facility ANTI HCV Timed 03/22/2005 10:42 AM CDT from Last 3 Months or Most Recently Relevant to Health Maintenance Results * ANTI HIV 1/2 (08/24/2023 10:34 AM CURATOR OF COLLECTIONS) [facility] HIV-1/HIV-2 SCREEN Non-Reacti ve Non-Reacti ve 08/24/2023 5:54 PM CURATOR OF COLLECTIONS [facility] Comment:HIV-1 p24 and HIV-1/ HIV-2 Ab Not Detected. Blood BLOOD SPECIMEN / Unknown Venipuncture / Unknown 08/24/2023 10:34 AM CURATOR OF COLLECTIONS 08/24/2023 10:35 AM CURATOR OF COLLECTIONS us Jeannette Soares MD SEND OUTS Fi nal Result [facility] [address] [place] [id number], [place] * (ABNORMAL) LIPID PANEL W REFLEX MEASURED LDL (08/01/2013 9:36 AM CURATOR OF COLLECTIONS) [facility] CHOLESTEROL,TOTAL 153 100 - 199 mg/dL 08/01/2013 10:[address] [facility] TRIGLYCERIDES 155(H) <150 mg/dL 08/01/2013 10:[address] [facility] HDL CHOLESTEROL 37(L) >40 mg/dL 4 10:[address] [facility] NON-HDL CHOLESTEROL 116 <145 mg/dl 08/01/2013 10:[address] [facility] CHOL/HDL RATIO 4.14 <4.50 08/01/2013 10:[address] [facility] LDL CHOLESTEROL 85 <=130 mg/dL 08/01/2013 10:[address] [facility] PATIENT STATUS FASTING 08/01/2013 10:[address] [facility] Blood specimen (specimen) BLOOD SPECIMEN / Unknown Venipuncture / Unknown 08/01/2013 9:36 AM CURATOR OF COLLECTIONS 08/01/2013 9:36 AM CURATOR OF COLLECTIONS us Og Villalta MD CHEMISTRY Final Re sult [facility] [address] [place] [address] * ANTI HCV (03/22/2005 10:42 AM CDT) Pathologist [facility] ANTI HCV Non-reactiv e [facility] 03/22/2005 10:4 2 AM CDT 03/22/2005 5:46 PM CDT Narrative [facility] - 03/26/2005 3:17 PM CDT Testing Performed By [place], [place] us Bea Garcia MD SEND OUTS Final Result [facility] [address] [place] [address] from Last 3 Months or Most Recently Relevant to Health Maintenance Insurance [facility] [id number] [place] [id number] ERNESTINE PERSON
[2024-08-11] MEDS: OXYMETAZOLINE 0.05% NASAL SPRAY 1 SPRAY NOSTRIL-B (16:21)
--- NOTE | 2024-08-11 16:24 | CRLHL7_ITS ---
For Patients: As a result of the Cures Act, medical imaging exams and procedure reports are released immediately into your electronic medical record. You may view this report before your referring provider. If you have questions, please contact your health care provider. INDICATION: Cough. TECHNIQUE: Chest radiographs, 2 views. COMPARISON: Chest radiographs 09/21/2022. FINDINGS: Cardiovascular/Mediastinum: Normal heart size. Unremarkable. Lungs: Patchy left retrocardiac opacification. Airways: Trachea remains midline. Pleura: No pleural effusions or pneumothorax. Bones: No acute osseous abnormalities. Upper abdomen: Unremarkable. IMPRESSION: Patchy left retrocardiac opacification may represent a developing pneumonia in the appropriate clinical setting. Dictated by Oliver Herzog MD @ 08/11/2024 4:55:37 PM (Electronically Signed)
[2024-08-11 17:40] VITALS: BP 137/92; PULSE 68; RESP 18; TEMP 36.8; O2SAT 94
== END 2024-08-11 17:47 | disposition home or self-care (01) ==
PROVIDERS: Emergency Provider Emergency Medicine; PCP Internal Medicine
DX: J18.9 Pneumonia, unspecified organism (principal)
CPT/HCPCS: 71046; 99283; 99284

== ENCOUNTER 2024-08-12 02:46 | Emergency (ER) | payer BC, MEDICAID, SELFPAY ==
--- OUTSIDE RECORDS SUMMARY | 2024-08-12 02:48 | XMS_ITS | Clinical Summary ---
Author Organization [employer] [facility] Address [address] [place] [id number] Care Team Providers Care Snack Foods Mixer Operator Name Role Phone Unavailable Primary Care Provider [...] Brother 1 Sean HTN Diabetes Brother 2 [employer] HTN Hypertension Mother Diabetes Sister Nicole HTN [...] on file Legal Sex Male 6:26 AM GROUNDHAND Gender Identity Not on file Sexual Orientation Not on file Occupation Industry Job Start Date Job End Date unemployed Not on file Not on file Not on file Obstetrics History Last Filed Vital Signs Vital Sign Reading Time Taken Comments Blood Pressure 136/88 08/24/2023 9:55 AM GROUNDHAND Pulse 66 08/24/2023 9:55 AM GROUNDHAND Temperature 36.8 C (98.3 F) 08/19/2023 1:55 PM GROUNDHAND Respiratory Rate 16 12/29/2012 12:53 PM CDT Oxygen Saturation 96% 08/24/2023 9:55 AM GROUNDHAND Inhaled Oxygen Concentration - - Weight 77.6 kg (171 lb) 08/24/2023 9:55 AM GROUNDHAND Height 168 cm (5' 6.14) 11/20/2013 12:52 [...] ANTI HIV 1/2 Routine 08/24/2023 10:34 AM GROUNDHAND Encounter for screening for HIV LIPID PANEL W REFLEX MEASURED LDL Routine 08/01/2013 9:36 AM GROUNDHAND Routine general medical examination at a health care facility ANTI HCV Timed 03/22/2005 10:42 AM CDT from Last 3 Months or Most Recently Relevant to Health Maintenance Results * ANTI HIV 1/2 (08/24/2023 10:34 AM GROUNDHAND) [facility] HIV-1/HIV-2 SCREEN Non-Reacti ve Non-Reacti ve 08/24/2023 5:54 PM GROUNDHAND [facility] Comment:HIV-1 p24 and HIV-1/ HIV-2 Ab Not Detected. Blood BLOOD SPECIMEN / Unknown Venipuncture / Unknown 08/24/2023 10:34 AM GROUNDHAND 08/24/2023 10:35 AM GROUNDHAND us Jeannette Soares MD SEND OUTS Fi nal Result [facility] [address] [place] [id number], [place] * (ABNORMAL) LIPID PANEL W REFLEX MEASURED LDL (08/01/2013 9:36 AM GROUNDHAND) [facility] CHOLESTEROL,TOTAL 153 100 - 199 mg/dL 08/01/2013 10:10 AM [facility] TRIGLYCERIDES 155(H) <150 mg/dL 08/01/2013 10:10 AM [facility] HDL CHOLESTEROL 37(L) >40 mg/dL 4 10:10 AM [facility] NON-HDL CHOLESTEROL 116 <145 mg/dl 08/01/2013 10:10 AM [facility] CHOL/HDL RATIO 4.14 <4.50 08/01/2013 10:10 AM [facility] LDL CHOLESTEROL 85 <=130 mg/dL 08/01/2013 10:10 AM [facility] PATIENT STATUS FASTING 08/01/2013 10:10 AM [facility] Blood specimen (specimen) BLOOD SPECIMEN / Unknown Venipuncture / Unknown 08/01/2013 9:36 AM GROUNDHAND 08/01/2013 9:36 AM GROUNDHAND us Og Villalta MD CHEMISTRY Final Re sult [facility] [address] [place] [address] * ANTI HCV (03/22/2005 10:42 AM CDT) Pathologist [facility] ANTI HCV Non-reactiv e [facility] 03/22/2005 10:4 2 AM CDT 03/22/2005 5:46 PM CDT Narrative [facility] - 03/26/2005 3:17 PM CDT Testing Performed By [place], [place] us Bea Garcia MD SEND OUTS Final Result [facility] [address] [place] [address] from Last 3 Months or Most Recently Relevant to Health Maintenance Insurance [facility] [id number] [place] [id number] ERNESTINE PERSON
[2024-08-12 02:53] VITALS: BP 154/83; PULSE 74; RESP 18; TEMP 36.4; O2SAT 95; BMI 28.2
--- NOTE | 2024-08-12 03:42 | ED.GENADULT ---
HPI - General Adult General Chief complaint: Cough Stated complaint: pneumonia Time Seen by Provider: 08/12/24 03:02 Source: patient Mode of arrival: ambulatory Limitations: language barrier (Phone human resources safety manager used for interview and discussion of plan) History of Present Illness HPI narrative: 54-year-old male presents the emergency department for the 2nd time in 24 hours for evaluation of cough. Patient was seen earlier today, viral swabs were negative. He had no hypoxia tachypnea or abnormal findings on exam. He had a chest x-ray performed which showed probable early atypical pneumonia. He had been seen in the clinic 2 days prior and was started on Augmentin which he has been taking. He reports that he thinks he is wheezing. He did not make it to the pharmacy prior to their closure today despite the fact that he was discharged from the ED with several hours to do so. 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 He has no history of COPD. He quit smoking over 30 years ago and only smoked for a few years. He has no history of underlying asthma. Reviews chart and see that he does tend to come in multiple times per year including at least once yearly for similar respiratory illness. Symptoms do tend to improve with antibiotics. No fever, no vomiting. No trauma or injury. No history of cardiac issues. Did not try any other interventions prior to coming to the ED to help with symptoms. Past medical history reported as benign, no major long-term health problems. No long-term prescription medications or drug allergies. Nonsmoker. ROS is notable for the respiratory symptoms and some nasal congestion only, otherwise denies times 12 systems. Related Data Home Medications ?Medication ?Instructions ?Recorded ?Confirmed calcium carbonate (Tums) 200 - 400 mg PO QDAY PRN 08/03/23 08/09/24 Previous Rx's ?Medication ?Instructions ?Recorded amoxicillin 875 mg-potassium 1 tab PO BID #14 tabs 08/09/24 clavulanate 125 mg tablet azithromycin 250 mg tablet 250 mg PO DAILY 6 days #6 tabs 08/11/24 (Zithromax) benzonatate 100 mg capsule 100 mg PO TID PRN cough #14 caps 08/11/24 albuterol sulfate 90 mcg/actuation 2 puff inhalation QID PRN 08/12/24 aerosol inhaler (Ventolin HFA) shortness of breath or wheezing #8.5 grams inhalational spacing device #1 ea 08/12/24 (BreatheRite MDI Spacer) Allergies Allergy/AdvReac Type Severity Reaction Status Date / Time No Known Drug Allergies Allergy Verified 08/09/24 09:34 [facility] Medical History Otitis media ?H66.90 - Otitis media, unspecified, unspecified ear (ICD-10) Cough ?R05.9 - Cough, unspecified (ICD-10) Irritable bowel syndrome ?K58.9 - Irritable bowel syndrome without diarrhea (ICD-10) Urinary tract infection ?N39.0 - Urinary tract infection, site not specified (ICD-10) Dyspepsia ?R10.13 - Epigastric pain (ICD-10) Anxiety ?F41.9 - Anxiety disorder, unspecified (ICD-10) Hemorrhoids ?K64.9 - Unspecified hemorrhoids (ICD-10) Urinary frequency ?R35.0 - Frequency of micturition (ICD-10) Dysuria ?R30.0 - Dysuria (ICD-10) 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 (ICD-10) Coccydynia ?M53.3 - Sacrococcygeal disorders, not elsewhere classified (ICD-10) Abdominal pain ?R10.9 - Unspecified abdominal pain (ICD-10) Elevated alkaline phosphatase level ?R74.8 - Abnormal levels of other serum enzymes (ICD-10) Gout ?M10.9 - Gout, unspecified (ICD-10) Rectal pain ?K62.89 - Other specified diseases of anus and rectum (ICD-10) Social History What is your current living situation?: I presently have a place to live Problems where you live: no known problems In the past 12 months, utilities in danger of being shut off: no In past 12 months, lack of transportation kept you from medical appts, meetings, work, or getting things needed for daily living: no In the past 12 mos, have been you worried that your food would run out before you had money to buy more?: never true In the past 12 mos, the food you bought just didn't last and you didn't have money to buy more?: never true Smoking Status: Former smoker Do you use any of these nicotine containing products: None Second hand tobacco smoke exposure: No How often do you have a drink containing alcohol: monthly or less How many standard drinks containing alcohol do you have on a typical day: 1 or 2 How often do you have six or more drinks on one occasion: Never AUDIT-C Alcohol total score: 1 Non-prescribed substance use: denies use How often does anyone, including family, friends and others, physically hurt you: never How often does anyone, including family, friends and others, insult or talk down to you: never How often does anyone, including family, friends and others, threaten you with harm: never How often does anyone, including family, friends and others, scream or curse at you: never Exam Const: Vital Signs, click to edit/add: Vital Signs - 24 hr 08/12/24 02:53 Temperature 97.6 F Pulse Rate [Left P ulse Oximeter] 74 Respiratory Rate 18 Blood Pressure [Ri ght Upper Arm] 154/83 H Pulse Oximetry 95 Oxygen Delivery Me thod Room Air Documenting provider has reviewed patient's vital signs: yes Common normals: alert General appearance: well kempt Other: Anxious but in no distress. Appears well-nourished and well-hydrated, nontoxic, noncyanotic. HENMT: Common normals: normocephalic, moist oral mucous membranes and oropharynx normal Head and scalp: normocephalic Other: Mild clear mucus rhinorrhea. Eye: Common normals: conjunctivae normal General eye: normal appearance of both eyes Conjunctiva: conjunctiva(e) normal Neck & C-Spine: Common normals: full ROM and no lymphadenopathy Resp: Common normals: normal respiratory effort, no use of accessory muscles and clear to auscultation bilaterally Effort & inspection: able to speak in complete sentences Auscultation: clear to auscultation bilaterally Cardio: Common normals: regular rate, regular rhythm, S1 normal heart sound, S2 normal heart sound and no murmurs Rate: regular rate Rhythm: regular rhythm Heart sounds: S1 normal and S2 normal Extremity: Common normals: normal to inspection, normal capillary refill and no pedal edema Neuro: Sensorium/orientation: alert Speech: speech normal Motor exam: no movement abnormalities noted Psych: Appearance: well kempt Attitude: engaged Insight: fair Judgement: fair Skin: Common normals: no rashes or lesions noted General skin exam: no rashes or lesions noted Course Course ED Course: Prior clinic in ED notes reviewed. No rationale to repeat testing. Chest x-ray re-examined. Will administer DuoNeb x1 to help patient clear this mucus though I am not appreciating any severe signs of wheezing today. He may be having some occult wheezing as it is consistent with what he describes even though it is not apparent at the time of my exam. Because of this, will start him on albuterol inhaler and spacer to augment the antibiotics and Tessalon Perles that he is prescribed. Patient will be given his dose of Augmentin and the azithromycin here in the ED because he did not pick them up at the pharmacy. Counseled patient that this will count as his Tuesday morning dose. I actually would like for him to finish his course of Augmentin and also start the azithromycin as prescribed as they do work in different ways and I am not commence that this is a mycoplasma presentation because it does look a bit focal on the chest x-ray. Double coverage seems appropriate. Rationale reviewed. Counseled patient that it will take a few days for his symptoms to improve. I do not think is a good candidate for steroids due to the fact that he seems fairly anxious, is likely to get insomnia and does not appear to have any signs of significant respiratory distress. Alarm symptoms reviewed that would warrant ED presentation. It may take several weeks for symptoms to resolve completely. Written instructions provided. Vital Signs Vital signs: Initial Vital Signs Temperature 97.6 F 08/12/24 02:53 Temperature Source Temporal Artery Scan 08/12/24 02:53 Pulse Rate 74 08/12/24 02:53 Pulse Rhythm Regular 08/12/24 02:53 Respiratory Rate 18 08/12/24 02:53 Blood Pressure 154/83 H 08/12/24 02:53 Blood Pressure Mean 106 H 08/12/24 02:53 Blood Pressure Position Sitting 08/12/24 02:53 Pulse Oximetry 95 08/12/24 02:53 Oxygen Delivery Method Room Air 08/12/24 02:53 Vital Signs Temperature 97.6 F 08/12/24 02:53 Pulse Rate 74 08/12/24 02:53 Respiratory Rate 18 08/12/24 02:53 Blood Pressure 154/83 H 08/12/24 02:53 Pulse Oximetry 95 08/12/24 02:53 Oxygen Delivery Method Room Air 08/12/24 02:53 Temperature 97.6 F 08/12/24 02:53 Pulse Rate 74 08/12/24 02:53 Respiratory Rate 18 08/12/24 02:53 Blood Pressure 154/83 H 08/12/24 02:53 Pulse Oximetry 95 08/12/24 02:53 Oxygen Delivery Method Room Air 08/12/24 02:53 Discharge Plan Discharge Clinical Impression: Atypical pneumonia Patient Disposition: Home w/ Parent or Adult Condition: Stable Instructions: Community Acquired Pneumonia (DC) Additional Instructions: As we discussed, your breathing is doing just fine. Please do not be alarmed by these symptoms, it will take the medicine several days to kick in. You are giving a breathing treatment to help loosen the mucus and congestion. I have prescribed you a similar inhaler to use at home. Please pick this up when the pharmacy opens and use this up to every 4 hours as needed. Please use the spacer with it as it does help the medicine penetrate deeper into your lungs. Your previously prescribed 2 different antibiotics for this infection. I actually like for you to finish out your course of the 1st antibiotic given on the and also start the new antibiotic because they work in different ways. The antibiotics that you were given in the emergency department will count as your morning doses for Tuesday the . Your next dose of the azithromycin will be Tuesday, your next dose of the Augmentin will be this evening. It will take several days before your symptoms improve. If you have severe weakness, shortness of breath to the point repeat can not walk from her bed to the bathroom or other severe worsening, you should return to the emergency department. Otherwise if your symptoms are stable, please allow the medications more time to work. Stevinson ya hemos comentado, cope respiraci?n est? addie. No se alarme por estos s?ntomas, ya que el medicamento tardar? varios d?as en hacer efecto. Le est?n dando un tratamiento respiratorio para ayudar a aflojar la mucosidad y la congesti?n. Le he recetado un inhalador similar para que lo use en casa. Rec?jalo cuando jesi la farmacia y ?selo cada 4 horas seg?n sea necesario. Utilice el espaciador con ?l, ya que ayuda a que el medicamento penetre m?s profundamente en young pulmones. Le johnson recetado anteriormente 2 antibi?ticos diferentes para esta infecci?n. En realidad, me gustar?a que terminara el tratamiento con el primer antibi?michael que le dieron el d?a 18 y que tambi?n comience con el nuevo antibi?michael porque funcionan de forma diferente. Los antibi?ticos que le dieron en el departamento de emergencias contar?n kimberly young dosis matinales para el kaushik 23. Cope pr?xima dosis de azitromicina ser? el lunes y cope pr?xima dosis de Augmentin ser? esta tarde. Pasar?n varios d?as antes de que young s?ntomas mejoren. Si presenta debilidad grave, dificultad para respirar hasta el punto de no poder caminar desde la cama hasta el ba?o o cualquier otro empeoramiento grave, debe regresar al servicio de urgencias. De lo contrario, si young s?ntomas se estabilizan, espere m?s tiempo para que los medicamentos act?en. Activity Level: No Restrictions Discharge Diet: Regular Prescriptions: New albuterol sulfate [Ventolin HFA] 90 mcg/actuation HFA aerosol inhaler 2 puff inhalation QID PRN (Reason: shortness of breath or wheezing) Qty: 8.5 1RF (DME) BreatheRite MDI Spacer Spacer See Rx Instructions .Route Qty: 1 0RF Rx Instructions: As directed No Action calcium carbonate [Tums] 200 mg calcium (500 mg) tablet,chewable 200 - 400 mg PO QDAY PRN amoxicillin-pot clavulanate 875-125 mg tablet 1 tab PO BID Qty: 14 0RF azithromycin [Zithromax] 250 mg tablet 250 mg PO DAILY 6 Days Qty: 6 0RF Rx Instructions: start on day 2 of therapy benzonatate 100 mg capsule 100 mg PO TID PRN (Reason: cough) Qty: 14 0RF Follow Up/Referrals: Dustin Thrasher MD [Primary Care Provider] - Stand Alone Forms: [employer] Info Instructions
[2024-08-12] MEDS: AMOXICILLIN/CLAVULANATE 875 mg/125 mg TABLET PO (03:43)
[2024-08-12] MEDS: AZITHROMYCIN 250 MG TABLET 500 MG PO (03:43)
[2024-08-12] MEDS: IPRAT-ALBUT 0.5-2.5 MG/3 ML NEB 1 NEB IH (03:44)
--- OUTSIDE RECORDS SUMMARY | 2024-08-12 03:52 | XMS_ITS | Clinical Summary ---
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 Gender Identity Not on file Sexual Orientation Not on file Occupation Industry Job Start Date Job End Date unemployed Not on file Not on file Not on file Obstetrics History Last Filed Vital Signs Vital Sign Reading Time Taken Comments Blood Pressure 136/88 08/24/2023 9:55 AM J[employer] AND FIXTURE MAKER Pulse 66 08/24/2023 9:55 AM [employer] AND FIXTURE MAKER Temperature 36.8 C (98.3 F) 08/19/2023 1:55 PM J[employer] AND FIXTURE MAKER Respiratory Rate 16 12/29/2012 12:53 PM CDT Oxygen Saturation 96% 08/24/2023 9:55 AM J[employer] AND FIXTURE MAKER Inhaled Oxygen Concentration - - Weight 77.6 kg (171 lb) 08/24/2023 9:55 AM [employer] AND FIXTURE MAKER Height 168 cm (5' 6.14) 11/20/2013 12:52 [...] ANTI HIV 1/2 Routine 08/24/2023 10:34 AM [employer] AND FIXTURE MAKER Encounter for screening for HIV LIPID PANEL W REFLEX MEASURED LDL Routine 08/01/2013 9:36 AM J[employer] AND FIXTURE MAKER Routine general medical examination at a health care facility ANTI HCV Timed 03/22/2005 10:42 AM CDT from Last 3 Months or Most Recently Relevant to Health Maintenance Results * ANTI HIV 1/2 (08/24/2023 10:34 AM JIG AND FIXTURE MAKER) [facility] HIV-1/HIV-2 SCREEN Non-Reacti ve Non-Reacti ve 08/24/2023 5:54 PM JIG AND FIXTURE MAKER [facility] Comment:HIV-1 p24 and HIV-1/ HIV-2 Ab Not Detected. Blood BLOOD SPECIMEN / Unknown Venipuncture / Unknown 08/24/2023 10:34 AM JIG AND FIXTURE MAKER 08/24/2023 10:35 AM J[employer] AND FIXTURE MAKER us Jeannette Soares MD SEND OUTS Fi nal Result [facility] [address] [place] [address], [place] * (ABNORMAL) LIPID PANEL W REFLEX MEASURED LDL (08/01/2013 9:36 AM JIG AND FIXTURE MAKER) [facility] CHOLESTEROL,TOTAL 153 100 - 199 mg/dL 08/01/2013 10:10 AM [facility] TRIGLYCERIDES 155(H) <150 mg/dL 08/01/2013 10:10 AM [facility] HDL CHOLESTEROL 37(L) >40 mg/dL 4 10:10 AM [facility] NON-HDL CHOLESTEROL 116 <145 mg/dl 08/01/2013 10:10 AM [facility] CHOL/HDL RATIO 4.14 <4.50 08/01/2013 10:10 AM [facility] LDL CHOLESTEROL 85 <=130 mg/dL 08/01/2013 10:10 AM [facility] PATIENT STATUS FASTING 08/01/2013 10:10 AM [facility] Blood specimen (specimen) BLOOD SPECIMEN / Unknown Venipuncture / Unknown 08/01/2013 9:36 AM J[employer] AND FIXTURE MAKER 08/01/2013 9:36 AM J[employer] AND FIXTURE MAKER us Og Villalta MD CHEMISTRY Final Re sult [facility] [address] [place] [address] * ANTI HCV (03/22/2005 10:42 AM CDT) Pathologist [facility] ANTI HCV Non-reactiv e [facility] 03/22/2005 10:4 2 AM CDT 03/22/2005 5:46 PM CDT Narrative [facility] - 03/26/2005 3:17 PM CDT Testing Performed By [place], [place] us Bea Garcia MD SEND OUTS Final Result [facility] [address] [place] [address] from Last 3 Months or Most Recently Relevant to Health Maintenance Insurance [facility] [id number] [place] [id number] ERNESTINE PERSON
== END 2024-08-12 03:56 | disposition home or self-care (01) ==
LOC: ED 03:50
PROVIDERS: Emergency Provider Family Medicine; PCP Internal Medicine
DX: J18.9 Pneumonia, unspecified organism (principal)
CPT/HCPCS: 99283; A9270

== ENCOUNTER 2024-08-18 13:38 | Emergency (ER) | payer BC, MEDICAID, SELFPAY ==
--- OUTSIDE RECORDS SUMMARY | 2024-08-18 13:40 | XMS_ITS | Data Portability ---
Author Organization [facility] Address [address] [facility] [address] [place] [address] Care Team Providers Care Accounts Payable Representative Name Role Phone BRUCETEHARINI [facility] [...] Organization Details Recorded Time Blood in urine [id number] Active 014 599.70 : HEMATURIA -UNSPECIF IED - Notes:SAW BLOOD-LILIAN PS IN TOILET 1 MONTH AGOHAD DYSURIA -WAS TREATED WITH CIIPRO-FE LT BETTER Not Available [facility] 02:03:18 Problem Notes None recorded. Procedures Surgical History Date Name Laterality Status Provider Name and Address Organization Details Recorded Time 4 CystoscopyMale completed Jennifer Cervantes MD [address] [facility],[address], [place], [address], [facility] 08/22/2023 13:40:26 Imaging Results None [...] SNOMED-CT Code Diagnosis ICD10 Code Diagnosis Note [id number] Jennifer Cervantes MD [facility] [address] [place] [address],[address] [place] [address] 08/22/2023 13:03:22 08/22/2023 14:11:39 Microscopic hematuria [id number] R31.29 sent for cystoscopy taking flomax now [...] OR AFTER 2023 (MEDICAID REPLACEMENT - HMO) [id number] Damon Vargas [id number] Damon Vargas Notes Date Note Type Note Provider Name and Address Organization Details Recorded Time 08/22/2023 text/html patient is here for f/u Jennifer Cervantes MD [address] [place] [address],[address], [place], [address], [facility] 08/22/2023 13:56:51
--- OUTSIDE RECORDS SUMMARY | 2024-08-18 13:40 | XMS_ITS | Clinical Summary ---
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 Gender Identity Not on file Sexual Orientation Not on file Occupation Industry Job Start Date Job End Date unemployed Not on file Not on file Not on file Obstetrics History Last Filed Vital Signs Vital Sign Reading Time Taken Comments Blood Pressure 136/88 08/24/2023 9:55 AM KITCHEN FOOD ASSEMBLER Pulse 66 08/24/2023 9:55 AM K[employer]OD ASSEMBLER Temperature 36.8 C (98.3 F) 08/19/2023 1:55 PM [employer] ASSEMBLER Respiratory Rate 16 12/29/2012 12:53 PM CDT Oxygen Saturation 96% 08/24/2023 9:55 AM K[employer] FOOD ASSEMBLER Inhaled Oxygen Concentration - - Weight 77.6 kg (171 lb) 08/24/2023 9:55 AM K[employer] FOOD ASSEMBLER Height 168 cm (5' 6.14) 11/20/2013 12:52 [...] ANTI HIV 1/2 Routine 08/24/2023 10:34 AM K[employer] ASSEMBLER Encounter for screening for HIV LIPID PANEL W REFLEX MEASURED LDL Routine 08/01/2013 9:36 AM K[employer] ASSEMBLER Routine general medical examination at a health care facility ANTI HCV Timed 03/22/2005 10:42 AM CDT from Last 3 Months or Most Recently Relevant to Health Maintenance Results * ANTI HIV 1/2 (08/24/2023 10:34 AM KITCHEN FOOD ASSEMBLER) [facility] HIV-1/HIV-2 SCREEN Non-Reacti ve Non-Reacti ve 08/24/2023 5:54 PM KITCHEN FOOD ASSEMBLER [facility] Comment:HIV-1 p24 and HIV-1/ HIV-2 Ab Not Detected. Blood BLOOD SPECIMEN / Unknown Venipuncture / Unknown 08/24/2023 10:34 AM KITCHEN FOOD ASSEMBLER 08/24/2023 10:35 AM K[employer] ASSEMBLER us Jeannette Soares MD SEND OUTS Fi nal Result [facility] [address] [place] [address], [place] * (ABNORMAL) LIPID PANEL W REFLEX MEASURED LDL (08/01/2013 9:36 AM KITCHEN FOOD ASSEMBLER) [facility] CHOLESTEROL,TOTAL 153 100 - 199 mg/dL 08/01/2013 10:10 AM [facility] TRIGLYCERIDES 155(H) <150 mg/dL 08/01/2013 10:10 AM [facility] HDL CHOLESTEROL 37(L) >40 mg/dL 4 10:10 AM [facility] NON-HDL CHOLESTEROL 116 <145 mg/dl 08/01/2013 10:10 AM [facility] CHOL/HDL RATIO 4.14 <4.50 08/01/2013 10:10 AM [facility] LDL CHOLESTEROL 85 <=130 mg/dL 08/01/2013 10:10 AM [facility] PATIENT STATUS FASTING 08/01/2013 10:10 AM [facility] Blood specimen (specimen) BLOOD SPECIMEN / Unknown Venipuncture / Unknown 08/01/2013 9:36 AM K[employer]EN [employer]OD ASSEMBLER 08/01/2013 9:36 AM K[employer]EN [employer] ASSEMBLER us Og Villalta MD CHEMISTRY Final Re sult [facility] [address] [place] [address] * ANTI HCV (03/22/2005 10:42 AM CDT) Pathologist [facility] ANTI HCV Non-reactiv e [facility] 03/22/2005 10:4 2 AM CDT 03/22/2005 5:46 PM CDT Narrative [facility] - 03/26/2005 3:17 PM CDT Testing Performed By [place], [place] us Bea Garcia MD SEND OUTS Final Result [facility] [address] [place] [address] from Last 3 Months or Most Recently Relevant to Health Maintenance Insurance [facility] [id number] [place] [id number] ERNESTINE PERSON
[2024-08-18 14:02] VITALS: BP 131/85; PULSE 83; RESP 18; TEMP 36.6; O2SAT 95; BMI 28.2
--- NOTE | 2024-08-18 14:27 | ED.GENADULT ---
HPI - General Adult General Chief complaint: Cough Stated complaint: Pneumonia Time Seen by Provider: 08/18/24 13:51 History of Present Illness HPI narrative: This 54-year-old male comes in reporting productive cough and generalized malaise. He was diagnosed with a pneumonia and treated with an antibiotic about 10 days ago. A repeat x-ray showed that the suspicion for some infiltrate had cleared. He is currently still taking antibiotic and has 3 days left in the course of this therapy. He comes in reporting lots of phlegm when coughing. He does not report any fevers. He arrives here with normal vital signs. Related Data Home Medications ?Medication ?Instructions ?Recorded ?Confirmed calcium carbonate (Tums) 200 - 400 mg PO QDAY PRN 08/03/23 08/14/24 Previous Rx's ?Medication ?Instructions ?Recorded azithromycin 250 mg tablet 250 mg PO DAILY 6 days #6 tabs 08/11/24 (Zithromax) benzonatate 100 mg capsule 100 mg PO TID PRN cough #14 caps 08/11/24 albuterol sulfate 90 mcg/actuation 2 puff inhalation QID PRN 08/12/24 aerosol inhaler (Ventolin HFA) shortness of breath or wheezing #8.5 grams inhalational spacing device #1 ea 08/12/24 (BreatheRite MDI Spacer) levofloxacin 500 mg tablet 500 mg PO QDAY 7 days #7 tabs 08/14/24 acetaminophen 300 mg-codeine 30 mg 1 tab PO Q6H PRN pain #15 tabs 08/18/24 tablet methylprednisolone 4 mg tablets in See Rx Instructions PO .COMPLEX 08/18/24 a dose pack (Medrol (Rik)) #21 ea Allergies Allergy/AdvReac Type Severity Reaction Status Date / Time No Known Drug Allergies Allergy Verified 08/14/24 09:32 Review of Systems Status of ROS: Reports: 10 or more systems reviewed and unremarkable except as noted in History and below Narrative: Constitutional: No fevers, no weight gain or loss. Eyes: No discharge. No vision changes. HENT: No congestion, no sore throat, no ear pain. Cardiovascular: No chest pain, no palpitations. Respiratory: No shortness of breath, no wheezes. He reports a productive cough. Gastrointestinal: No abdominal pain, no vomiting, no diarrhea. Genitourinary: No dysuria, no hematuria. Musculoskeletal: Normal range of motion. Skin: No rashes, no pruritis. Neurological: No dizziness, weakness, sensory change, speech change. Endo/Heme/Allergies: No bruising or bleeding. No polydipsia. Pysch: no suicidality, no anxiety, no insomnia. All other systems reviewed and are negative. 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 (ICD-10) Coccydynia ?M53.3 - Sacrococcygeal disorders, not elsewhere classified (ICD-10) Abdominal pain ?R10.9 - Unspecified abdominal pain (ICD-10) Elevated alkaline phosphatase level ?R74.8 - Abnormal levels of other serum enzymes (ICD-10) Gout ?M10.9 - Gout, unspecified (ICD-10) Rectal pain ?K62.89 - Other specified diseases of anus and rectum (ICD-10) Social History What is your current living situation?: I presently have a place to live Problems where you live: no known problems In the past 12 months, utilities in danger of being shut off: no In past 12 months, lack of transportation kept you from medical appts, meetings, work, or getting things needed for daily living: no In the past 12 mos, have been you worried that your food would run out before you had money to buy more?: never true In the past 12 mos, the food you bought just didn't last and you didn't have money to buy more?: never true Smoking Status: Former smoker Do you use any of these nicotine containing products: None Second hand tobacco smoke exposure: No How often do you have a drink containing alcohol: monthly or less How many standard drinks containing alcohol do you have on a typical day: 1 or 2 How often do you have six or more drinks on one occasion: Never AUDIT-C Alcohol total score: 1 Non-prescribed substance use: denies use How often does anyone, including family, friends and others, physically hurt you: never How often does anyone, including family, friends and others, insult or talk down to you: never How often does anyone, including family, friends and others, threaten you with harm: never How often does anyone, including family, friends and others, scream or curse at you: never Exam Narrative: Exam Narrative: Constitutional: Well-developed, well-nourished, no acute distress. HEENT: Normocephalic, atraumatic. Neck: Normal range of motion. Nontender. Supple. Heart: Regular. No murmurs. Normal rate. Intact distal pulses. Lungs: Clear to auscultation. No chest discomfort. No wheezes, rhonchi, or rales. Abdomen: Normal bowel sounds. Nontender. No rebound tenderness. Genitalia: Deferred. Back: No midline tenderness. Normal range of motion. Extremities: Normal range of motion. No injury. Skin: Intact. No rash. Warm. No erythema or pallor. Neurologic: No altered sensation. No weakness. Alert and oriented. Psychiatric: No suicidality. No anxiety or depression. No insomnia. Nursing notes and vitals signs are reviewed. Const: Vital Signs, click to edit/add: Vital Signs - 24 hr 08/18/24 14:02 Temperature 97.8 F Pulse Rate [Pulse Oximeter] 83 Respiratory Rate 18 Blood Pressure [Ri ght Upper Arm] 131/85 Pulse Oximetry 95 Oxygen Delivery Me thod Room Air Course Vital Signs Vital signs: Initial Vital Signs Temperature 97.8 F 08/18/24 14:02 Temperature Source Temporal Artery Scan 08/18/24 14:02 Pulse Rate 83 08/18/24 14:02 Respiratory Rate 18 08/18/24 14:02 Blood Pressure 131/85 08/18/24 14:02 Blood Pressure Mean 100 08/18/24 14:02 Blood Pressure Position Sitting 08/18/24 14:02 Pulse Oximetry 95 08/18/24 14:02 Oxygen Delivery Method Room Air 08/18/24 14:02 Vital Signs Temperature 97.8 F 08/18/24 14:02 Pulse Rate 83 08/18/24 14:02 Respiratory Rate 18 08/18/24 14:02 Blood Pressure 131/85 08/18/24 14:02 Pulse Oximetry 95 08/18/24 14:02 Oxygen Delivery Method Room Air 08/18/24 14:02 Temperature 97.8 F 08/18/24 14:02 Pulse Rate 83 08/18/24 14:02 Respiratory Rate 18 08/18/24 14:02 Blood Pressure 131/85 08/18/24 14:02 Pulse Oximetry 95 08/18/24 14:02 Oxygen Delivery Method Room Air 08/18/24 14:02 Medications Administered Medications: Discontinued Medications Generic Name Dose Route Start Last Admin Trade Name Freq PRN Reason Stop Dose Admin Dexamethasone 10 mg 08/18/24 14:26 08/18/24 14:33 Dexamethasone 10 Mg/Ml Inj PO 08/18/24 14:27 10 mg ONCE ONE Administration Medical Decision Making MDM Narrative Medical decision making narrative: This patient is currently taking an antibiotic for a pneumonia diagnosis that has resolved none the most recent x-ray. I did repeat the x-ray today and again there is no sign of infiltrate or pneumonia. The patient however is feeling lots a congestion and phlegm with coughing and has persistent coughing especially at night. His vital signs and exam are normal. He did receive an oral dose of dexamethasone. It seems that he has upper respiratory infection related to a virus. I advised him to continue the antibiotic as he has 3 days remaining in the course of that treatment. The patient did receive an oral dose of dexamethasone 10 mg here. I did provide a Medrol Dosepak prescription and a prescription for some tablets of Tylenol 3 for symptomatic relief. Imaging Data Chest x-ray: Radiologist's impression: Negative chest. No sign of pneumonia. Discharge Plan Discharge Clinical Impression: Acute upper respiratory infection Patient Disposition: Home, Self-Care Condition: Stable Additional Instructions: Take medication as prescribed and needed. Follow up with MD return if worsening. Prescriptions: New acetaminophen-codeine 300-30 mg tablet 1 tab PO Q6H PRN (Reason: pain) Qty: 15 0RF methylprednisolone [Medrol (Rik)] 4 mg tablets,dose pack See Rx Instructions .ROUTE .COMPLEX Qty: 21 0RF Rx Instructions: orally per package directions No Action levofloxacin 500 mg tablet 500 mg PO QDAY 7 Days Qty: 7 0RF calcium carbonate [Tums] 200 mg calcium (500 mg) tablet,chewable 200 - 400 mg PO QDAY PRN azithromycin [Zithromax] 250 mg tablet 250 mg PO DAILY 6 Days Qty: 6 0RF Rx Instructions: start on day 2 of therapy benzonatate 100 mg capsule 100 mg PO TID PRN (Reason: cough) Qty: 14 0RF albuterol sulfate [Ventolin HFA] 90 mcg/actuation HFA aerosol inhaler 2 puff inhalation QID PRN (Reason: shortness of breath or wheezing) Qty: 8.5 1RF (DME) BreatheRite MDI Spacer Spacer See Rx Instructions .Route Qty: 1 0RF Rx Instructions: As directed Follow Up/Referrals: Dustin Thrasher MD [Primary Care Provider] - Stand Alone Forms: [facility] Info Instructions
[2024-08-18] MEDS: dexAMETHasone 10 MG/ML inj PO (14:33)
[2024-08-18 15:49] VITALS: BP 131/85; PULSE 83; RESP 18; TEMP 36.6
== END 2024-08-18 15:49 | disposition home or self-care (01) ==
PROVIDERS: Emergency Provider Emergency Medicine Emergency Medical Services; PCP Internal Medicine
DX: J06.9 Acute upper respiratory infection, unspecified (principal)
CPT/HCPCS: 71046; 99283; 99284; J1100

== ENCOUNTER 2024-09-08 14:40 | Emergency (ER) | payer BC, MEDICAID, SELFPAY ==
--- OUTSIDE RECORDS SUMMARY | 2024-09-08 14:43 | XMS_ITS | Data Portability ---
Author Organization [facility], [facility] Address [address] [facility] [address] [place] [address] Care Team Providers Care Country Director Name Role Phone BRUCETEHARINI [place] Primary Care Provider [phone] Assessment No assessment recorded. Plan of Treatment [...] Organization Details Recorded Time Blood in urine [id number] Active 014 599.70 : HEMATURIA -UNSPECIF IED - Notes:SAW BLOOD-LILIAN PS IN TOILET 1 MONTH AGOHAD DYSURIA -WAS TREATED WITH CIIPRO-FE LT BETTER Not Available [facility] 0 02:03:18 Problem Notes None recorded. Procedures Surgical History Date Name Laterality Status Provider Name and Address Organization Details Recorded Time 4 CystoscopyMale completed Jennifer Cervantes MD [address] [facility],[address], [place], [address], [facility] 08/22/2023 13:40:26 Imaging Results None [...] SNOMED-CT Code Diagnosis ICD10 Code Diagnosis Note [id number] Jennifer Cervantes MD [facility] [address] [place] [address],[address] [place] [address] 08/22/2023 13:03:22 08/22/2023 14:11:39 Microscopic hematuria [id number] R31.29 sent for cystoscopy taking flomax now [...] OR AFTER 2023 (MEDICAID REPLACEMENT - HMO) [id number] Damon Vargas [id number] Damon Vargas Notes Date Note Type Note Provider Name and Address Organization Details Recorded Time 08/22/2023 text/html patient is here for f/u Jennifer Cervantes MD [address] [place] [address],[address], [place], [address], [facility] 08/22/2023 13:56:51
--- OUTSIDE RECORDS SUMMARY | 2024-09-08 14:43 | XMS_ITS | Clinical Summary ---
Author Organization [facility] Address [facility] [place] [address] Care Team Providers Care Computer Mechanic Name Role Phone Votel, Og Serna MD Primary Care Provider + Allergies Active Allergy Reactions Criticality Noted Date Comments Sulfamethoxazole-Trimethopr im Rash 08/24/2023 Mild rash on righ hand Medications calcium carbonate (Tums) 200 mg calcium (500 mg) chewable tablet Chew 500 mg by mouth three times daily with meals. Active MULTIVITAMIN ORAL Take by mouth. Active tamsulosin 0.4 mg capsuleIndicati ons:BPH with lower urinary tract symptoms without urinary obstruction Take 1 Capsule (0.4 mg) by mouth once daily after a meal. 90 Capsule 3 5 Active RectaSmoothe 5 % cream Apply topically to affected area(s) 2 times daily if needed. 4 09/06/19 25 Discontinu ed(*Med complete/R egimen complete/L evel of care change) esomeprazole (NexIUM 24HR) 20 mg capsule Take 20 mg by mouth once daily. 09/06/19 25 Discontinu ed(*Patien t states no longer taking) Active Problems Problem Noted Date Diagnosed Date Other and unspecified hyperlipidemia 04/14/2006 Dermatophytosis of nail 11/29/2005 Resolved Problems Problem Noted Date Diagnosed Date Resolved Date Blepharitis of left eye 08/07/2010 04/0 07/2013 Pure hyperglyceridemia 12/16/200504/14 Esophageal reflux 12/16/2005 09/19/2013 Encounters Date Type Department Care Team Description 09/06/2024 Telephone [facility] [address] [place] [address] Og Villalta MD Results (Lab) 09/05/2024 9:35 AM CDT Office Visit [facility] [address] [place] [address] Og Villalta MD Physical (54 YEAR OLD MALE); Follow Up (Pneumonia, x 1 month ago/Head pressure also) 09/05/2024 Travel from Last 3 Months Immunizations Immunization Administration Dates Next Due Td (Age >=7 Years) 01/20/2004 Tdap 06/29/2023,08/14/2012 Family History Medical History Relation Name Comments Diabetes Brother 1 Sean HTN Diabetes Brother 2 [place] HTN Hypertension Mother Diabetes Sister Nicole HTN Relation Name Status Comments Brother 1 Sean Brother 2 [place] Father Mother Alive Sister Nicole Social History Tobacco Use Types Packs/Day Years Used Date Smoking Tobacco: Former Cigarettes 0 06/20/1994 - 06/20/1997 Smokeless Tobacco: Never Tobacco Cessation:Counseling Given: Yes Comments:1/2 ppd Alcohol Use Standard Drinks/Week Comments Not Currently 0 (1 standard drink = 0.6 oz pur e alcohol) PHQ-2 Answer Date Recorded PHQ-2 TOTAL SCORE 0 09/05/2024 Social Connections Answer Date Recorded Do you often feel lonely or isolated from those around you? 0 09/05/2024 Financial Resource Strain Answer Date R ecorded Difficulty of Paying Living Expenses 3 09/05/2024 Difficulty of Paying Living Expenses Not on file 09/05/2024 Food Insecurity Answer Date Recorded Do you worry your food will run out before you are able to buy more? 1 09/05/2024 Transportation Needs Answer Date Record ed Does lack of transportation keep you from medica l appointments? 1 09/05/2024 Does lack of transportation keep you from work, meetings or getting things that you need? 1 09/05/2024 Housing Stability Answer Date Recorded What is your housing situation today? 1 09/05/2024 Utilities Answer Date Recorded Do you have trouble paying f or utilities (for example, heat, electricity, water, phone)? 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 Gender Identity Not on file Sexual Orientation Not on file Occupation Industry Job Start Date Job End Date unemployed Not on file Not on file Not on file Obstetrics History Last Filed Vital Signs Vital Sign Reading Time Taken Comments Blood Pressure 132/86 09/05/2024 9:39 AM CDT Pulse 54 09/05/2024 9:39 AM CDT Temperature 36.6 C (97.8 F) 09/05/2024 9:39 AM CDT Respiratory Rate 16 12/29/2012 12:53 PM CDT Oxygen Saturation 96% 09/05/2024 9:39 AM CDT Inhaled Oxygen Concentration - - Weight 79.7 kg (175 lb 9.6 oz) 09/05/2024 9:39 A M CDT Height 167.9 cm (5' 6.1) 09/05/2024 9:39 AM CDT Body Mass Index 28.26 09/05/2024 9:39 AM CDT Plan of Treatment Upcoming Encounters Date Type Department Care Team (Late st Contact Info) Description 09/25/2024 4:10 PM CDT Office Visit [facility] [address] [place] [address] Votel, Og Serna MD [address] [place] [address] Health Maintenance Due Date Last Done Comments Colonoscopy through age 75 02/01/2013 Pneumococcal series for age 50+ (1 of 1 - PCV) 02/01/2018 Zoster (shingles) series for age 50+ (1 of 2) 02/01/2018 COVID-19 vaccine series ( - 2023- season) 2024 Influenza Vaccine (#1) 2024 BMI (ht and wt on same day) for age 18+ 09/05/2025 09/05/2024 Depression screening for age 12+ 09/06/2025 09/07/19, 09/05/2024 Lipids for age 45-75 09/05/2029 09/05/2024, 08/01/2013, 08/19/2012, Additional history exists Tetanus booster 06/29/2033 06/29/2023, 07/22, 01/20/2004 Hepatitis C screening for ag e 18-79 Completed 03/22/2005 Tdap Completed 06/29/2023, 08/14/2012 HIV for age 15-65 Completed 08/24/2023 Procedures Procedure Name Priority Date/Time Associated Diagnosis Comments CBC WITH AUTO DIFFERENTIAL Routine 09/05/2024 11:13 AM CDT Routine general medical examination at a health care facility LIPID PANEL W REFLEX MEASURED LDL Routine 09/05/2024 11:13 AM CDT Routine general medical examination at a health care facility PSA TOTAL Routine 09/05/2024 11:13 AM CDT Screening PSA (prostate specific antigen) COMP METABOLIC PANEL Routine 09/05/2024 11:13 AM CDT Routine general medical examination at a health care facility ANTI HIV 1/2 Routine 08/24/2023 10:34 AM HEAT SET OPERATOR Encounter for screening for HIV ANTI HCV Timed 03/22/2005 10:42 AM CDT from Last 3 Months or Most Recently Relevant to Health Maintenance Results * (ABNORMAL) LIPID PANEL W REFLEX MEASURED LDL (09/05/2024 11:13 AM CDT) CHOLESTEROL, TOTAL 192 <200 mg/dL [facility] HDL CHOLESTEROL 76 > OR = 40 mg/dL [facility] TRIGLYCERIDES 70 <150 mg/dL [facility] LDL-CHOLESTEROL 100(H) mg/dL (calc) [facility] Comment: Reference range: <100 Desirable range <100 mg/dL for primary prevention; <70 mg/dL for patients with CHD or diabetic patients with > or = 2 CHD risk factors. LDL-C is now calculated using the Dami calculation, which is a validated novel method providing better accuracy than the Friedewald equation in the estimation of LDL-C. Titi PADILLA et al. [place]WA. 2013;310(19): 3824-4939 (http://education.Smart [employer]/faq/EKY334) CHOL/HDLC RATIO 2.5 <5.0 (calc) [facility] NON HDL CHOLESTEROL 116 <130 mg/dL (calc) [facility] Comment: For patients with diabetes plus 1 major ASCVD risk factor, treating to a non-HDL-C goal of <100 mg/dL (LDL-C of <70 mg/dL) is considered a therapeutic option. Blood BLOOD SPECIMEN / Unknown 09/05/2024 11:13 AM CDT 09/05/2024 11:14 AM CDT Og Villalta MD CHEMISTRY Final Re sult [facility] [address] [place] [address], [facility] [address] * CBC AND DIFFERENTIAL (09/05/2024 11:13 AM CDT) WHITE BLOOD CELL COUNT 4.2 3.8 - 10.8 Thousand/u L [facility] RED BLOOD CELL COUNT 5.32 4.20 - 5.80 Million/uL [facility] HEMOGLOBIN 16.5 13.2 - 17.1 g/dL [facility] HEMATOCRIT 48.6 38.5 - 50.0 % [facility] MCV 91.4 80.0 - 100.0 fL [facility] MCH 31.0 27.0 - 33.0 pg [facility] MCHC 34.0 32.0 - 36.0 g/dL [facility] Comment: For adults, a slight decrease in the calculated MCHC value (in the range of 30 to 32 g/dL) is most likely not clinically significant; however, it should be interpreted with caution in correlation with other red cell parameters and the patient's clinical condition. RDW 13.5 11.0 - 15.0 % [facility] PLATELET COUNT 174 140 - 400 Thousand/u L [facility] MPV 12.3 7.5 - 12.5 fL [facility] ABSOLUTE NEUTROPHILS 2,209 1,500 - 7,800 cells/uL [facility] ABSOLUTE LYMPHOCYTES 1,348 850 - 3,900 cells/uL [facility] ABSOLUTE MONOCYTES 399 200 - 950 cells/uL [facility] ABSOLUTE EOSINOPHILS 202 15 - 500 cells/uL [facility] ABSOLUTE BASOPHILS 42 0 - 200 cells/uL [facility] NEUTROPHILS 52.6 % [facility] LYMPHOCYTES 32.1 % [facility] MONOCYTES 9.5 % [facility] EOSINOPHILS 4.8 % [facility] BASOPHILS 1.0 % [facility] Blood BLOOD SPECIMEN / Unknown 09/05/2024 11:13 AM CDT 09/05/2024 11:14 AM CDT Og Villalta MD HEMATOLOGY Final Re sult [facility] [address] [place] [address], [facility] [address] [place] [address] * PSA TOTAL (DIAG OR SCREEN) (09/05/2024 11:13 AM CDT) PSA, TOTAL 1.47 < OR = 4.00 ng/mL [facility] Comment: The total PSA value from this assay system is standardized against the WHO standard. The test result will be approximately 20% lower when compared to the equimolar-standardized total PSA ([place]). Comparison of serial PSA results should be interpreted with this fact in mind. This test was performed using the Siemens chemiluminescent method. Values obtained from different assay methods cannot be used interchangeably. PSA levels, regardless of value, should not be interpreted as absolute evidence of the presence or absence of disease. Blood BLOOD SPECIMEN / Unknown 09/05/2024 11:13 AM CDT 09/05/2024 11:14 AM CDT us Og Villalta MD CHEMISTRY Final Re sult [facility] [address] [place] [address], [facility] [address] [place] [address] * (ABNORMAL) COMP METABOLIC PANEL (09/05/2024 11:13 AM CDT) GLUCOSE 90 65 - 99 mg/dL [facility] Comment: Fasting reference interval UREA NITROGEN (BUN) 19 7 - 25 mg/dL [facility] CREATININE 1.02 0.70 - 1.30 mg/dL [facility] EGFR 86 > OR = 60 mL/min/1. 73m2 [facility] BUN/CREATININE RATIO SEE NOTE: 6 - 22 (calc) [facility] Comment: Not Reported: BUN and Creatinine are within reference range. SODIUM 140 135 - 146 mmol/L [facility] POTASSIUM 4.4 3.5 - 5.3 mmol/L [facility] CHLORIDE 104 98 - 110 mmol/L [facility] CARBON DIOXIDE 29 20 - 32 mmol/L [facility] CALCIUM 9.0 8.6 - 10.3 mg/dL [facility] PROTEIN, TOTAL 6.9 6.1 - 8.1 g/dL [facility] ALBUMIN 4.1 3.6 - 5.1 g/dL [facility] GLOBULIN 2.8 1.9 - 3.7 g/dL (calc) [facility] ALBUMIN/GLOBULIN RATIO 1.5 1.0 - 2.5 (calc) [facility] BILIRUBIN, TOTAL 0.9 0.2 - 1.2 mg/dL [facility] ALKALINE PHOSPHATASE 135 35 - 144 U/L [facility] AST 44(H) 10 - 35 U/L [facility] ALT 58(H) 9 - 46 U/L [facility] Blood BLOOD SPECIMEN / Unknown 09/05/2024 11:13 AM CDT 09/05/2024 11:14 AM CDT us Og Villalta MD CHEMISTRY Final Re sult [facility] [address] [place] [address], [place] [phone] [facility] [address] [place] [address] * ANTI HIV 1/2 (08/24/2023 10:34 AM HEAT SET OPERATOR) [facility] HIV-1/HIV-2 SCREEN Non-Reacti ve Non-Reacti ve 08/24/2023 5:54 PM HEAT SET OPERATOR [facility] Comment:HIV-1 p24 and HIV-1/ HIV-2 Ab Not Detected. Blood BLOOD SPECIMEN / Unknown Venipuncture / Unknown 08/24/2023 10:34 AM HEAT SET OPERATOR 08/24/2023 10:35 AM HEAT SET OPERATOR us Jeannette Saores MD SEND OUTS Fi nal Result Performing Organization Address City/[facility]/ZIP Co de Phone Number [facility] [address] [place] [address], * ANTI HCV (03/22/2005 10:42 AM CDT) Pathologist [facility] ANTI HCV Non-reactiv e [facility] 03/22/2005 10:4 2 AM CDT 03/22/2005 5:46 PM CDT Narrative [facility] - 03/26/2005 3:17 PM CDT Testing Performed By [place], [place] us Bea Garcia MD SEND OUTS Final Result [facility] [address] [place] [address] from Last 3 Months or Most Recently Relevant to Health Maintenance Insurance [id number] [place] [place] [id number] [facility] P[facility] Care Teams Computer Mechanic Relationship Specialty Start Date End Date Votel, Og Serna MD [address] [place] [address] PCP - General Family Practice 09/05/24
[2024-09-08 14:45] VITALS: BP 149/83; PULSE 67; RESP 18; TEMP 36.6; O2SAT 96; BMI 25.1
--- NOTE | 2024-09-08 15:07 | CRLHL7_ITS ---
For Patients: As a result of the Cures Act, medical imaging exams and procedure reports are released immediately into your electronic medical record. You may view this report before your referring provider. If you have questions, please contact your health care provider. INDICATION: Cough. TECHNIQUE: Chest 2 views. COMPARISON: August 18, 2024. FINDINGS: Cardiovascular and mediastinum: Cardiomediastinal silhouette is within normal limits. Lungs and pleural spaces: Lungs are clear. No sign of pleural effusion. No pneumothorax. Bones and soft tissues: No significant findings. IMPRESSION: No acute findings and no significant change from the prior exam. Dictated by Behzad Jones MD @ 09/08/2024 3:59:47 PM (Electronically Signed)
--- NOTE | 2024-09-08 15:10 | ED_ITS ---
HPI - Chest Pain General Chief Complaint: Chest Pain Stated Complaint: heart beating faster, head ache Time Seen by Provider: 09/08/24 14:46 History of Present Illness HPI narrative: This 54-year-old male comes in reporting some left-sided chest discomfort. He states that it is present for the past few days and reproducible when coughing or taking a deep breath. He states that he was diagnosed with a pneumonia and treated for it and the week or 2 prior to this. He arrives here with normal vital signs. He states that he feels like his heart is beating fast. He has had just a little bit of nausea but no vomiting. He does not report any lightheadedness, shortness of breath, or diaphoresis. He does not have any exercise intolerance. Related Data Home Medications ?Medication ?Instructions ?Recorded ?Confirmed calcium carbonate (Tums) 200 - 400 mg PO QDAY PRN 08/03/23 08/28/24 Previous Rx's ?Medication ?Instructions ?Recorded albuterol sulfate 90 mcg/actuation 2 puff inhalation QID PRN 08/12/24 aerosol inhaler (Ventolin HFA) shortness of breath or wheezing #8.5 grams inhalational spacing device #1 ea 08/12/24 (BreatheRite MDI Spacer) acetaminophen 300 mg-codeine 30 mg 1 tab PO Q6H PRN pain #15 tabs 09/08/24 tablet Allergies Allergy/AdvReac Type Severity Reaction Status Date / Time No Known Drug Allergies Allergy Verified 09/08/24 14:53 Review of Systems Status of ROS Reports: 10 or more systems reviewed and unremarkable except as noted in History and below Narrative Constitutional: No fevers, no weight gain or loss. Eyes: No discharge. No vision changes. HENT: No congestion, no sore throat, no ear pain. Cardiovascular: No palpitations. He reports that he feels that his heart is beating fast sometimes. Respiratory: No shortness of breath, no wheezes. Occasional cough. Gastrointestinal: No abdominal pain, no vomiting, no diarrhea. Genitourinary: No dysuria, no hematuria. Musculoskeletal: Normal range of motion. Skin: No rashes, no pruritis. Neurological: No dizziness, weakness, sensory change, speech change. Endo/Heme/Allergies: No bruising or bleeding. No polydipsia. Pysch: no suicidality, no anxiety, no insomnia. All other systems reviewed and are negative. 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 (ICD-10) Coccydynia ?M53.3 - Sacrococcygeal disorders, not elsewhere classified (ICD-10) Abdominal pain ?R10.9 - Unspecified abdominal pain (ICD-10) Elevated alkaline phosphatase level ?R74.8 - Abnormal levels of other serum enzymes (ICD-10) Gout ?M10.9 - Gout, unspecified (ICD-10) Rectal pain ?K62.89 - Other specified diseases of anus and rectum (ICD-10) Social History What is your current living situation?: I presently have a place to live Problems where you live: no known problems In the past 12 months, utilities in danger of being shut off: no In past 12 months, lack of transportation kept you from medical appts, meetings, work, or getting things needed for daily living: no In the past 12 mos, have been you worried that your food would run out before you had money to buy more?: never true In the past 12 mos, the food you bought just didn't last and you didn't have money to buy more?: never true Smoking Status: Former smoker Do you use any of these nicotine containing products: None Second hand tobacco smoke exposure: No How often do you have a drink containing alcohol: monthly or less How many standard drinks containing alcohol do you have on a typical day: 1 or 2 How often do you have six or more drinks on one occasion: Never AUDIT-C Alcohol total score: 1 Non-prescribed substance use: denies use How often does anyone, including family, friends and others, physically hurt you : never How often does anyone, including family, friends and others, insult or talk down to you: never How often does anyone, including family, friends and others, threaten you with harm: never How often does anyone, including family, friends and others, scream or curse at you: never Exam Narrative Exam Narrative: Constitutional: Well-developed, well-nourished, no acute distress. HEENT: Normocephalic, atraumatic. Neck: Normal range of motion. Nontender. Supple. Heart: Regular. No murmurs. Normal rate. Intact distal pulses. Lungs: Clear to auscultation. No chest discomfort. No wheezes, rhonchi, or rales. Abdomen: Normal bowel sounds. Nontender. No rebound tenderness. Genitalia: Deferred. Back: No midline tenderness. Normal range of motion. Extremities: Normal range of motion. No injury. Skin: Intact. No rash. Warm. No erythema or pallor. Neurologic: No altered sensation. No weakness. Alert and oriented. Psychiatric: No suicidality. No anxiety or depression. No insomnia. Nursing notes and vitals signs are reviewed. Const Vital Signs, click to edit/add: Vital Signs - 24 hr 09/08/24 14:45 09/08/24 15:56 Temperature 97.9 F Pulse Rate [Right Pulse Oximeter] 67 55 L Respiratory Rate 18 18 Blood Pressure [Right Upper Arm] 149/83 H 135/90 H Pulse Oximetry 96 95 Oxygen Delivery Method Room Air Room Air Course Vital Signs Vital signs: Initial Vital Signs Temperature 97.9 F 09/08/24 14:45 Temperature Source Temporal Artery Scan 09/08/24 14:45 Pulse Rate 67 09/08/24 14:45 Pulse Rhythm Regular 09/08/24 14:45 Respiratory Rate 18 09/08/24 14:45 Blood Pressure 149/83 H 09/08/24 14:45 Blood Pressure Mean 105 09/08/24 14:45 Blood Pressure Position Sitting 09/08/24 14:45 Pulse Oximetry 96 09/08/24 14:45 Oxygen Delivery Method Room Air 09/08/24 14:45 Vital Signs Temperature 97.9 F 09/08/24 14:45 Pulse Rate 67 09/08/24 14:45 Respiratory Rate 18 09/08/24 14:45 Blood Pressure 149/83 H 09/08/24 14:45 Pulse Oximetry 96 09/08/24 14:45 Oxygen Delivery Method Room Air 09/08/24 14:45 Temperature 97.9 F 09/08/24 14:45 Pulse Rate 55 L 09/08/24 15:56 Respiratory Rate 18 09/08/24 15:56 Blood Pressure 135/90 H 09/08/24 15:56 Pulse Oximetry 95 09/08/24 15:56 Oxygen Delivery Method Room Air 09/08/24 15:56 MDM - Chest Pain MDM Narrative Medical decision making narrative: This patient comes in with concern that he may have something wrong with his heart or his lungs. He reports occasional cough now with some mucus after having been treated for pneumonia a few weeks ago. He does report some chest discomfort that is reproducible when taking a deep breath or when coughing. His EKG, chest x-ray, and labs returned with normal findings. This was very reassuring to the patient. His symptoms are likely due to chest wall pain related to coughing. I did provide a prescription for some tablets of Tylenol 3 for symptomatic relief. Lab Data Labs: Lab Results 09/08/24 09/08/24 Range/Units 15:08 15:15 WBC 4.52 (4.50-11.00) K/uL RBC 4.82 (4.30-5.90) m/uL Hgb 14.9 (13.5-17.5) gm/dL Hct 42.3 (37.0-53.0) % MCV 88 (80-100) fL MCH 31 (26-34) pg MCHC 35 (32-36) gm/dL RDW Coeff of Jacklyn 12.9 (11.5-15.5) % Plt Count 170 (140-440) K/uL Neut % (Auto) 48.7 (42.0-72.0) % Lymph % (Auto) 35.0 (20-44) % Granville % (Auto) 10.8 (0.0-11.0) % Eos % (Auto) 4.4 (0.0-7.0) % Baso % (Auto) 0.9 (0.0-3.0) % Neut # (Auto) 2.20 (1.7-7.0) K/uL Lymph # (Auto) 1.58 (0.90-2.90) K/uL [place] # (Auto) 0.50 (0.00-0.90) K/UL Eos # (Auto) 0.20 (0.00-0.50) K/uL Baso # (Auto) 0.04 (0.00-0.30) K/uL Abs Immat Gran (auto) 0.01 (0.00-0.30) K/uL Imm/Tot Granulo (auto) 0.2 % POC Troponin I 0.01 (0.01-0.04) ng/ml Imaging Data Chest x-ray: Radiologist's impression: No acute findings and no significant change from the prior exam. ECG Data Attestation: I personally reviewed and interpreted this ECG as follows: Interpretation: Normal sinus rhythm. Rate is 65 beats per minute. There are no ST or T-wave abnormalities. Discharge Plan Discharge Clinical Impression: Cough, Acute chest wall pain Patient Disposition: Home, Self-Care Condition: Stable Additional Instructions: Use ekka-zki-tiddklv medicines as needed and directed. Use prescribed a medicine also as needed and directed for symptomatic relief. Follow up with MD or return if worsening. Prescriptions: New acetaminophen-codeine 300-30 mg tablet 1 tab PO Q6H PRN (Reason: pain) Qty: 15 0RF No Action calcium carbonate [Tums] 200 mg calcium (500 mg) tablet,chewable 200 - 400 mg PO QDAY PRN albuterol sulfate [Ventolin HFA] 90 mcg/actuation HFA aerosol inhaler 2 puff inhalation QID PRN (Reason: shortness of breath or wheezing) Qty: 8.5 1RF (DME) BreatheRite MDI Spacer Spacer See Rx Instructions .Route Qty: 1 0RF Rx Instructions: As directed Follow Up/Referrals: Dustin Thrasher MD [Primary Care Provider] - Stand Alone Forms: [facility] [place] [facility] Info Instructions
--- OUTSIDE RECORDS SUMMARY | 2024-09-08 15:11 | XMS_ITS | Clinical Summary ---
Author Organization [facility] [facility] Address [facility] [place] [address] Care Team Providers Care Materials Director Name Role Phone Votel, Og Serna MD [...] Type Department Care Team Description 09/06/2024 Telephone [facility] [address] [place] [address] Og Villalta MD Results (Lab) 09/05/2024 9:35 AM CDT Office Visit [facility] [address] [place] [address] Og Villalta MD Physical (54 YEAR OLD MALE); Follow Up (Pneumonia, x 1 month ago/Head pressure also) 09/05/2024 Travel from Last 3 Months Immunizations Immunization Administration Dates Next Due Td (Age >=7 Years) 01/20/2004 Tdap 06/29/2023,08/14/2012 Family History Medical History Relation Name Comments Diabetes Brother 1 Sean HTN Diabetes Brother 2 [place] HTN Hypertension Mother Diabetes Sister Nicole HTN Relation Name Status Comments Brother 1 Sean Brother 2 [place] Father Mother Alive Sister Nicole Social History [...] on file Legal Sex Male 6:26 AM [employer]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 Titi PADILLA et al. HAWA. 2013;310(19): 2100-6309 (http://education.MaxPreps/faq/JUD371) CHOL/HDLC RATIO 2.5 <5.0 (calc) [facility] [...] Og Villalta MD CHEMISTRY Final Re sult [employer] [facility] [address] [place] [address], [place] [facility] [address] * CBC AND DIFFERENTIAL (09/05/2024 11:13 AM CDT) WHITE BLOOD CELL COUNT 4.2 3.8 - 10.8 Thousand/u L [facility] RED BLOOD CELL COUNT 5.32 4.20 - 5.80 Million/uL [facility] HEMOGLOBIN 16.5 13.2 - 17.1 [...] 1,500 - 7,800 cells/uL [facility] ABSOLUTE LYMPHOCYTES 1,348 850 - 3,900 cells/uL [...] Og Villalta MD HEMATOLOGY Final Re sult [employer] [facility] [address] [place] [address], [facility] [address] [place] [address] * PSA TOTAL (DIAG OR SCREEN) (09/05/2024 11:13 AM CDT) PSA, TOTAL 1.47 < OR = 4.00 ng/mL [facility] Comment: The total PSA value from this assay system is standardized against the WHO standard. The test result will be approximately 20% lower when compared to the equimolar-standardized total PSA ([place]). Comparison of serial PSA results should be [...] Og Villalta MD CHEMISTRY Final Re sult [employer] [facility] [address] [place] [address], [place] [facility] [address] [place] [address] * (ABNORMAL) COMP METABOLIC PANEL (09/05/2024 11:13 AM CDT) GLUCOSE 90 65 - 99 mg/dL [employer] [facility] Comment: Fasting reference interval UREA NITROGEN (BUN) 19 7 - 25 mg/dL [facility] CREATININE 1.02 0.70 - 1.30 mg/dL [employer] [facility] EGFR 86 > OR = 60 mL/min/1. 73m2 [employer] [facility] BUN/CREATININE RATIO SEE NOTE: 6 - 22 (calc) [employer] [facility] Comment: Not Reported: BUN and Creatinine are within reference range. SODIUM 140 135 - 146 mmol/L [facility] POTASSIUM 4.4 3.5 - 5.3 mmol/L [facility] CHLORIDE 104 98 - 110 mmol/L [facility] CARBON DIOXIDE 29 20 - 32 mmol/L [facility] CALCIUM 9.0 8.6 - 10.3 mg/dL [employer] [facility] PROTEIN, TOTAL 6.9 6.1 - 8.1 g/dL [facility] ALBUMIN 4.1 3.6 - 5.1 g/dL [facility] GLOBULIN 2.8 1.9 - 3.7 g/dL (calc) [facility] ALBUMIN/GLOBULIN RATIO 1.5 1.0 - 2.5 (calc) [facility] BILIRUBIN, TOTAL 0.9 0.2 - 1.2 mg/dL [facility] ALKALINE PHOSPHATASE 135 35 - 144 U/L [employer] [facility] AST 44(H) 10 - 35 U/L [facility] ALT 58(H) 9 - 46 U/L [facility] Blood BLOOD SPECIMEN / Unknown 09/05/2024 11:13 AM CDT 09/05/2024 11:14 AM CDT us Og Villalta MD CHEMISTRY Final Re sult [facility] [address] [place] [address], [place] [phone] [facility] [address] [place] [address] * ANTI HIV 1/2 (08/24/2023 10:34 AM NATIONAL SALES ASSOCIATE) [facility] HIV-1/HIV-2 SCREEN Non-Reacti ve Non-Reacti ve 08/24/2023 5:54 PM NATIONAL SALES ASSOCIATE [facility] Comment:HIV-1 p24 and HIV-1/ HIV-2 Ab Not Detected. Blood BLOOD SPECIMEN / Unknown Venipuncture / Unknown 08/24/2023 10:34 AM NATIONAL SALES ASSOCIATE 08/24/2023 10:35 AM NATIONAL SALES ASSOCIATE us Jeannette Soares MD SEND OUTS Fi nal Result Performing Organization Address City/[facility]/ZIP Co de Phone Number [facility] [address] [place] [address], * ANTI HCV (03/22/2005 10:42 AM CDT) Pathologist [facility] ANTI HCV Non-reactiv e [facility] 03/22/2005 10:4 2 AM CDT 03/22/2005 5:46 PM CDT Narrative [facility] - 03/26/2005 3:17 PM CDT Testing Performed By [place], [place] us Bea Garcia MD SEND OUTS Final Result [facility] [address] [place] [address] from Last 3 Months or Most Recently Relevant to Health Maintenance Insurance [id number] [place] [address] [facility] ERNESTINE PERSON Care Teams Materials Director Relationship Specialty Start Date End Date Votel, Og Serna MD [address] [place] [address] PCP - General Family Practice 09/05/24
[2024-09-08 15:22] LABS: Basophils Absolute Auto 0.04 K/uL (0.00-0.30); Basophils Percent Auto 0.9 % (0.0-3.0); Eosinophils Percent Auto 4.4 % (0.0-7.0); Hematocrit 42.3 % (37.0-53.0); Hemoglobin* 14.9 gm/dL (13.5-17.5); Immature Granulocytes Abs Auto 0.01 K/uL (0.00-0.30); Immature Granulocytes Pct Auto 0.2 %; Lymphocytes Absolute Auto 1.58 K/uL (0.90-2.90); Mean Corpuscular HGB Conc 35 gm/dL (32-36); Mean Corpuscular Hemoglobin 31 pg (26-34); Mean Corpuscular Volume 88 fL (80-100); Monocytes Percent Auto 10.8 % (0.0-11.0); Neutrophils Percent Auto 48.7 % (42.0-72.0); Platelet Count* 170 K/uL (140-440); RDW Coefficient of Variation % 12.9 % (11.5-15.5); Red Blood Count 4.82 m/uL (4.30-5.90); White Blood Count* 4.52 K/uL (4.50-11.00)
[2024-09-08 15:28] LABS: Slide Review Reflex No
[2024-09-08 15:30] LABS: Troponin, Point-of-Care* 0.01 ng/ml (0.01-0.04)
[2024-09-08 15:56] VITALS: BP 135/90; PULSE 55; RESP 18; O2SAT 95
== END 2024-09-08 16:32 | disposition home or self-care (01) ==
PROVIDERS: Emergency Provider Emergency Medicine Emergency Medical Services; PCP Internal Medicine
DX: R07.89 Other chest pain (principal); R05.9 Cough, unspecified
CPT/HCPCS: 36415; 71046; 84484; 85025; 93005; 99284